=== PATIENT | female | born 1955 | race Caucasian/White ===

== ENCOUNTER 2025-05-25 09:11 | Emergency (ER) | payer MEDICARE, SELFPAY ==
[2025-05-25] VITALS (7 sets, daily range): BP systolic 105–129; BP diastolic 62–88; PULSE 59–68; RESP 15–18; TEMP 36.5–36.6; O2SAT 94–98
--- NOTE | ~2025-05-25 | XR_ITS ---
CHEST RADIOGRAPH, PA AND LATERAL CLINICAL HISTORY: bradycardia . COMPARISON: None available TECHNIQUE: PA and lateral views of the chest. FINDINGS On correlating of the thoracic aorta is identified distorting the contour of the air column within th e esophagus as well as the abdulkadir and bronchi. The remainder of the cardiomediastinal silhouette is otherwise unremarkable. The lungs are clear. IMPRESSION: No focal infiltrate or effusion. Reviewed, dictated and finalized at location A.
--- NOTE | 2025-05-25 09:15 | ECG_ITS ---
Test Date: 2025-05-25 09:17:47 Measurements Intervals [place] Rate: 63 P: 62 FL: 148 QRS: 23 QRSD: 97 T: 63 QT: 405 QTc: 415 Interpretive Statements SINUS RHYTHM WITH PVCs Electronically Signed On 05-25-2025 17:25:23 CDT by Santi Araujo D.O
[2025-05-25 09:32] LABS: Hematocrit 36.9 % (37.0-47.0); Hemoglobin 12.4 g/dL (12.0-15.0); Immature Granulocyte Percent A 0.3 % (0-0.5); Lymphocytes Absolute Auto 2.43 K/mm3 (0.9-3.2); Mean Corpuscular HGB Conc 33.6 g/dl (32-36); Mean Corpuscular Hemoglobin 31.2 pg (26-34); Mean Corpuscular Volume 92.7 fl (80-100); Nucleated Red Blood Cells Absolute Auto 0.000 K/mm3 (0.0-0.012); Nucleated Red Blood Cells Perc 0.0 % (0.0-0.2); Platelet Count Result 243 k/mm3 (150-375); Red Blood Count 3.98 M/mm3 (4.2-5.4); White Blood Count 8.7 K/mm3 (4.5-10.0)
[2025-05-25 09:45] LABS: INR 0.9; Prothrombin Time 12.7 Seconds (11.1-14.7)
[2025-05-25 09:46] LABS: Partial Thromboplastin Time 25.6 Seconds (22.3-36.8)
--- NOTE | 2025-05-25 09:49 | PC.NURSE ---
called lab to add on MG
[2025-05-25 09:58] LABS: Alanine Aminotransferase 19 U/L (6-35); Albumin Level 4.2 g/dL (3.5-5.1); Alkaline Phosphatase 95 U/L (38-126); Anion Gap 9 mmol/L (4-12); Aspartate Amino Transferase 31 U/L (14-36); Bilirubin,Total 0.4 mg/dL (0.2-1.3); Blood Urea Nitrogen 5 mg/dL (7-17); Calcium 9.4 mg/dL (8.4-10.2); Carbon Dioxide 30 mmol/L (22-30); Chloride 91 mmol/L (98-107); Estimated CRCL calculation 49 ml/min; Estimated Glomerular Filt Rate > 60; Glucose 130 mg/dL (65-110); Potassium 3.7 mmol/L (3.4-5.0); Sodium 130 mmol/L (137-145); Total Protein 7.8 g/dL (6.3-8.2)
[2025-05-25 10:03] LABS: Troponin I < 0.012 ng/mL (0.000-0.034)
--- OUTSIDE RECORDS SUMMARY | 2025-05-25 10:03 | XMS_ITS | Clinical Summary ---
Author Organization [facility] Care Team Providers Care Medical Staffing Coordinator Name Role Phone Dhruv Giraldo MD Primary Care Provider + Francisco Martinez MD Unavailable [phone] Allergies Active Allergy Reactions Criticality Noted Date Comments Codeine Nausea,Vomiting,Othe r (see Comments) High 04/02/2024 Reaction: NAUSEA, VOMITING, Morphine Hallucinations,Hives ,Unk nown High 07/20/2019 Reaction: HALLUCINATIONS, Other reaction(s): Stomach/GI Upset Penicillins Rash,Swelling High 07/20/2019 Other reaction(s): Rash Medications amLODIPine (NORVASC) 10 MG Tablet Take 10 mg by mouth daily. 3 Active amitriptyline (ELAVIL) 50 MG Tablet Take 50 mg by mouth. 4 Active buPROPion (WELLBUTRIN) 150 MG XL tablet Take 150 mg by mouth daily. 5 Active oxyCODONE-acetamino phen (PERCOCET) 7.5-325 MG Tablet Take 1 Tablet by mouth. Active dicyclomine (BENTYL) 10 MG Capsule Take 10 mg by mouth 3 times daily. 5 Active gabapentin (NEURONTIN) 300 MG Capsule Take 300 mg by mouth. 4 Active eszopiclone (LUNESTA) 2 MG Tablet take 1 tablet by mouth at bedtime as needed 5 Active folic acid (FOLVITE) 1 MG Tablet Take 1,000 mcg by mouth daily. 3 Active Lactulose Encephalopathy (Enulose) 10 GM/15ML Solution TAKE 15 ML BY MOUTH TWICE DAILY NEEDED Active potassium chloride SA (Klor-Con M20) 20 MEQ Tablet Controlled Release Take 20 mEq by mouth daily. Active levothyroxine (SYNTHROID) 50 MCG Tablet Take 50 mcg by mouth daily. 5 Active busPIRone (BUSPAR) 10 MG Tablet Take 10 mg by mouth 3 times daily. 5 Active rosuvastatin (CRESTOR) 10 MG Tablet Take 10 mg by mouth daily. Active triamterene-hydroch lorothiazide (MAXZIDE) 37.5-25 MG Tablet Take 1 Tablet by mouth daily. Active Active Problems Problem Noted Date Diagnosed Date Abnormal plasma viscosity 04/05/2025 Lytic bone lesions on xray 04/05/2025 Encounters Date Type Department Care Team Description 05/21/2025 9:30 AM CDT Office Visit [facility] [address] [id number] Brianda Lange, FOUNDRY MANAGER, PHYSICIST NUCLEAR Abnormal plasma viscosity (Primary Dx); Lytic bone lesions on xray 05/21/2025 9:00 AM CDT Ancillary Procedure [facility] [address] [id number] Francisco Martinez MD Abnormal plasma viscosity; Lytic bone lesions on xray 05/21/2025 Results Follow-Up [facility] [address] [id number] Linnette Agrawal RN CT ABDOMEN PELVIS W/ CONTRAST 05/21/2025 Telephone [facility] [address] [phone] Brianda Lange, FOUNDRY MANAGER, PHYSICIST NUCLEAR 05/19/2025 11:40 AM CDT Lab [facility] [address] [id number] Lab, Cc [facility] Abnormal plasma viscosity; Lytic bone lesions on xray; Other abnormal tumor markers; Elevated cancer antigen 125 (CA 125) 05/19/2025 Travel 04/05/2025 9:00 AM CDT Office Visit [facility] [address] [phone] Francisco Martinez MD Abnormal plasma viscosity (Primary Dx); Lytic bone lesions on xray 04/05/2025 Travel 03/29/2025 Telephone [facility] [address] [phone] Francisco Martinez MD Biopsy update 03/10/2025 Telephone [facility] [address] [address] Francisco Martinez MD 03/09/2025 Telephone [facility] [address] [address] Francisco Martinez MD 03/05/2025 Telephone [facility] [address] [address] Francisco Martinez MD 03/01/2025 Telephone [facility] [address] [address] Francisco Martinez MD 02/26/2025 9:45 AM CDT Office Visit [facility] [address] [phone] Francisco Martinez MD Lytic bone lesions on xray (Primary Dx); Other abnormal tumor markers; Elevated cancer antigen 125 (CA 125) 02/26/2025 Travel from Last 3 Months Family History Relation Name Status Comments Father Mother Social History Tobacco Use Types Packs/Day Years Used Date Smoking Tobacco: Former Cigarettes Smokeless Tobacco: Never Tobacco Cessation:Counseling Given: Not Answered Alcohol Use Standard Drinks/Week Comments Not Currently 0 (1 standard drink = 0.6 oz pur e alcohol) Sexually Active Control Partners Comments Not Currently Comments Unknown Sex and Gender Information Value Date Recorded Sex Assigned at Not on file Legal Sex Female 5:06 PM CDT Gender Identity Not on file Sexual Orientation Not on file Last Filed Vital Signs Vital Sign Reading Time Taken Comments Blood Pressure 100/58 05/21/2025 9:13 AM CDT Pulse 54 05/21/2025 9:13 AM CDT Temperature 36.6 C (97.8 F) 05/21/2025 9:13 AM CDT Respiratory Rate 18 05/21/2025 9:13 AM CDT Oxygen Saturation 98% 05/21/2025 9:13 AM CDT Inhaled Oxygen Concentration - - Weight 58.2 kg (128 lb 6.4 oz) 05/21/2025 9:13 A M CDT Height 162.6 cm (5' 4) 05/21/2025 9:13 AM CDT Body Mass Index 22.04 05/21/2025 9:13 AM CDT Plan of Treatment Health Maintenance Due Date Last Done Comments DEXA Bone Density 1957 TdaP Immunization 1955 Cologuard 2002 Immunochemical Fecal Occult Blood 2002 Zoster Immunization (1 of 2) 2007 Mammogram 03/15/2022 03/15/2021, 07/08/2019 SARS-COV-2 Immunization ( season) 2024 02/02/2021, 01/12/2021 Influenza Immunization (#1) 2025 Colonoscopy 04/24/2031 04/24/2021 Colorectal Cancer Screening 04/24/2031 Respiratory Syncytial Virus (RSV) Immunization (Adult) (1 - 1-dose 75+ series) 2032 Hepatitis C Virus (HCV) Screening Completed 05/26/2016 Pneumococcal Immunization (5 0+ years) Completed 11/06/2022 Hepatitis B Immunization Aged Out No longer eligible based on patient's age to complete this topic Human Papillomavirus (HPV) Immunization Aged Out No longer eligible b ased on patient's age to complete this topic Meningococcal Immunization (ACWY) Aged Out No longer eligible b ased on patient's age to complete this topic Rotavirus Immunization Aged Out No lo nger eligible based on patient's age to complete this topic Procedures Procedure Name Priority Date/Time Associated Diagnosis Comments CT ABDOMEN PELVIS W/ CONTRAST Routine 05/21/2025 9:22 AM CDT Abnormal plasma viscosity Lytic bone lesions on xray PROTHROMBIN TIME (PT) [id number] [place] Routine 05/19/2025 11:35 AM CDT APTT (PTT) Routine 05/19/2025 11:35 AM CDT Lytic bone lesions on xray Other abnormal tumor markers Elevated cancer antigen 125 (CA 125) Abnormal plasma viscosity CBC WITH AUTO DIFF [place] Routine 05/19/2025 11:33 AM CDT CMP (COMPREHENSIVE METABOLIC PANEL) Routine 05/19/2025 11:33 AM CDT Abnormal plasma viscosity Lytic bone lesions on xray from Last 3 Months Results * CT ABDOMEN PELVIS W/ CONTRAST (05/21/2025 9:22 AM CDT) Anatomical Region Laterality Modality Abdomen N/A Computed Tomogra phy Narrative 05/21/2025 9:49 AM CDT EXAMINATION: CT ABDOMEN PELVIS W/ CONTRAST 05/21/2025 HPI: 80 pound weight loss in six-months. Metastatic disease evaluation. COMPARISON: CT 03/02/2024. TECHNIQUE: Helical imaging of the abdomen and pelvis obtained with the intravenous administration of contrast. A dose lowering technique was used for this procedure, which may include, but is not limited to, dose reduction techniques, automated exposure controlled techniques, use of iterative reconstruction techniques, and ALARA or ALARA gently techniques. FINDINGS: LUNG BASES: The lung bases are clear. No pleural effusion. HEPATOBILIARY: There is some nodularity to the hepatic surface in the right hepatic lobe. No focal liver lesion identified. Status post cholecystectomy. The main portal vein, superior mesenteric vein, and splenic vein are unremarkable. The spleen and pancreas are unremarkable. Mild prominence of the common bile duct, not unexpected given postsurgical state. There is mild prominence of the main pancreatic duct at the level of the head, measuring 7 mm. :The kidneys enhance symmetrically. No hydroureteronephrosis. The adrenal glands are normal. The bladder is decompressed. Status post hysterectomy. GI: There is a significant amount of retained stool in the colon. There is mild colonic wall thickening. Adjacent fat stranding noted in the sigmoid colon and rectum. Small bowel feces sign noted. No bowel dilation. LYMPHATICS: Nonenlarged lymph node identified in the abdomen and pelvis. VASCULAR: Scattered atherosclerotic vascular calcification. No abdominal aortic aneurysm. Postsurgical change noted through the left groin with vascular bypass, incompletely assessed on this exam. MUSCULOSKELETAL: Nonacute right lateral rib fractures with callus formation. Nonacute fracture of the right obturator ring with callus formation. These are incompletely united. These do not appear pathologic in etiology. Status post L4-L5 posterior fusion. Mild L5 vertebral body height loss. Anterolisthesis, L4 on L5. Severe compression fracture noted at T9 at the edge of the [id number]. IMPRESSION 1. Nonacute appearing fractures of the right inferior lateral ribs, right obturator ring, and T9 and L5 vertebral bodies. These appear mechanical in etiology. 2. No CT evidence of metastatic disease. 3. Mild prominence of the main pancreatic duct, measuring 7 mm. This is unchanged in comparison. 4. There is minimal nodularity to the liver which raises concern for cirrhosis. 5. Findings of constipation. There is mild stranding noted about the sigmoid colon which could represent an acute infectious/inflammatory colitis. Correlate with patient's symptoms. There is no significant bowel wall thickening, however Electronically signed by: Mercedes Carlin Date of Signature: 05/21/2025 09:49:44 Procedure Note Mercedes Carlin MD - 05/21/2025 EXAMINATION: CT ABDOMEN PELVIS W/ CONTRAST 05/21/2025 HPI: 80 pound weight loss in six-months. Metastatic disease evaluation. COMPARISON: CT 03/02/2024. TECHNIQUE: Helical imaging of the abdomen and pelvis obtained with the intravenousadministration of contrast. A dose lowering technique was used for this procedure, which mayinclude, but is not limited to, dose reduction techniques, automatedexposure controlled techniques, use of iterative reconstructiontechniques, and ALARA or ALARA gently techniques. FINDINGS: LUNG BASES: The lung bases are clear. No pleural effusion. HEPATOBILIARY: There is some nodularity to the hepatic surface in theright hepatic lobe. No focal liver lesion identified. Status postcholecystectomy. The main portal vein, superior mesenteric vein, andsplenic vein are unremarkable. The spleen and pancreas are unremarkable.Mild prominence of the common bile duct, not unexpected given postsurgicalstate. There is mild prominence of the main pancreatic duct at the levelof the head, measuring 7 mm. :The kidneys enhance symmetrically. No hydroureteronephrosis. Theadrenal glands are normal. The bladder is decompressed. Status posthysterectomy. GI: There is a significant amount of retained stool in the colon. Thereis mild colonic wall thickening. Adjacent fat stranding noted in thesigmoid colon and rectum. Small bowel feces sign noted. No boweldilation. LYMPHATICS: Nonenlarged lymph node identified in the abdomen and pelvis. VASCULAR: Scattered atherosclerotic vascular calcification. No abdominalaortic aneurysm. Postsurgical change noted through the left groin withvascular bypass, incompletely assessed on this exam. MUSCULOSKELETAL: Nonacute right lateral rib fractures with callusformation. Nonacute fracture of the right obturator ring with callusformation. These are incompletely united. These do not appear pathologicin etiology. Status post L4-L5 posterior fusion. Mild L5 vertebral bodyheight loss. Anterolisthesis, L4 on L5. Severe compression fracturenoted at T9 at the edge of the [id number]. IMPRESSION 1. Nonacute appearing fractures of the right inferior lateral ribs, rightobturator ring, and T9 and L5 vertebral bodies. These appear mechanicalin etiology. 2. No CT evidence of metastatic disease. 3. Mild prominence of the main pancreatic duct, measuring 7 mm. This isunchanged in comparison. 4. There is minimal nodularity to the liver which raises concern forcirrhosis. 5. Findings of constipation. There is mild stranding noted about thesigmoid colon which could represent an acute infectious/inflammatorycolitis. Correlate with patient's symptoms. There is no significantbowel wall thickening, however Electronically signed by: Mercedes Carlin Date of Signature: 05/21/2025 09:49:44 us Francisco Martinez MD IM CT ORDERABLES Final Res ult * PROTHROMBIN TIME (PT) [id number] [place] (05/19/2025 11:35 AM CDT) INR 1.0 0.9 - 1.2 [facility] Comment: REFERENCE INTERVAL IS FOR NON-ANTICOAGULATED PATIENTS. SUGGESTED INR THERAPEUTIC RANGE FOR VITAMIN K ANTAGONIST THERAPY: STANDARD DOSE (MODERATE INTENSITY THERAPEUTIC RANGE): 2.0 - 3.0 HIGHER INTENSITY THERAPEUTIC RANGE 2.5 - 3.5 PROTHROMBIN TIME 10.8 9.1 - 12.0 SEC [facility] 05/19/2025 11:[address] [facility] - 05/20/2025 7:08 AM CDT TESTING PERFORMED AT: [] [facility], [address] [place] [address], [phone], PHONE: [phone], HEALTHCARE ANALYST: ONOFRE MCFADDEN, PHD us Francisco Martinez MD LAB SEND OUTS Final Resul t Performing Organization Address [facility]/ZIP Co de Phone Number [facility] [place] [address], * APTT (PTT) (05/19/2025 11:35 AM CDT) APTT 26 24 - 33 SEC [facility] Comment: THIS TEST HAS NOT BEEN VALIDATED FOR MONITORING UNFRACTIONATED HEPARIN THERAPY. APTT-BASED THERAPEUTIC RANGES FOR UNFRACTIONATED HEPARIN THERAPY HAVE NOT BEEN ESTABLISHED. FOR GENERAL GUIDELINES ON HEPARIN MONITORING, REFER TO THE [facility] DIRECTORY OF SERVICES. Blood 05/19/2025 11:[address] [facility] - 05/20/2025 9:07 AM CDT TESTING PERFORMED AT: [] [facility], [address] [place] [address], [phone], PHONE: [phone], HEALTHCARE ANALYST: ONOFRE MCFADDEN, PHD Release to patient->Immediate us Francisco Martinez MD HEMATOLOGY ORDERABLES Final Result Performing Organization Address [facility] Co de Phone Number [facility] [place] [address], [place] [phone] * (ABNORMAL) CBC WITH AUTO DIFF [place] (05/19/2025 11:33 AM CDT) WBC 7.4 4.0 - 10.0 10*3/uL [facility] HGB 12.0 11.2 - 15.7 g/dL [facility] HCT 35.0 34.1 - 44.9 % [facility] PLT 263 163 - 369 10*3/uL [facility] MPV 8.3(L) 9.4 - 12.4 fL [facility] RBC 3.86(L) 3.93 - 5.22 10*6/uL [facility] MCV 91 79 - 95 fL [facility] MCH 31.1 25.6 - 32.2 pg [facility] MCHC 34.3 32.2 - 36.5 g/dL [facility] RDW 11.7 11.6 - 14.4 % [facility] Neutrophils % 59.1 36.0 - 66.0 % [facility] Lymphocytes % 31.4 19.0 - 40.0 % [facility] Monocytes % 6.9 4.1 - 12.1 % [facility] Eosinophils % 1.5 0.0 - 3.5 % [facility] Basophils % 0.8 0.0 - 1.0 % [facility] Absolute Neutrophils 4.4 1.4 - 6.6 10*3/uL [facility] Absolute Lymphocytes 2.3 0.8 - 4.0 10*3/uL [facility] Absolute Monocytes 0.5 0.2 - 1.2 10*3/uL [facility] Absolute Eosinophils 0.1 0.0 - 0.4 10*3/uL [facility] Absolute Basophils 0.1 0.0 - 0.1 10*3/uL [facility] 05/19/2025 11:3 3 AM CDT Francisco Martinez MD LAB SEND OUTS Final Resul t [facility] [place] [address], * (ABNORMAL) CMP (COMPREHENSIVE METABOLIC PANEL) (05/19/2025 11:33 AM CDT) Glucose 123(H) 70 - 105 mg/dL [facility] Blood Urea Nitrogen 10 7 - 25 mg/dL [facility] Creatinine 1.0 0.6 - 1.2 mg/dL [facility] Sodium 125(L) 136 - 145 mEq/L [facility] Potassium 3.2(L) 3.5 - 5.1 mEq/L [facility] Chloride 85(L) 98 - 107 mEq/L [facility] Bicarbonate 29 21 - 31 mEq/L [facility] Total Bilirubin 0.3 0.3 - 1.0 mg/dL [facility] Alk. Phosphatase 91 34 - 104 U/L [facility] Aspartate Aminotransferase 15 13 - 39 U/L [facility] Alanine Aminotransferase 11 7 - 52 U/L [facility] Total Protein 6.7 6.4 - 8.9 g/dL [facility] Albumin 4.1 3.5 - 5.7 g/dL [facility] Calcium 8.9 8.6 - 10.3 mg/dL [facility] Anion Gap 14.2 7.0 - 15.0 mEq/L [facility] Globulin 2.6 2.0 - 3.5 g/dL [facility] EGFR 61 >60 ml/min/1. 73m2 [facility] Comment: This eGFR is calculated using 2020 CKD-EPI Creatinine equation without race modifier based on the NKF-ASN task force recommendations Equation: bTYK=626*min(SCr/k,1)a*max(SCr/k,1)-1.200*0.9938Age*1.012 (if female), where SCr is serum creatinine, k is 0.7 for females and 0.9 for males, and a is -0.241 for females and -0.302 for males Blood 05/19/2025 11:3 3 AM CDT Narrative [facility] - 05/19/2025 12:29 PM CDT Release to patient->Immediate IS THE PATIENT REQUIRED TO BE FASTING FOR 8 HOURS?->No Francisco Martinez MD CHEMISTRY ORDERABLES Final Result [facility] [place] [address], [place] [phone] from Last 3 Months Insurance MEDICARE C [employer] Care Teams Medical Staffing Coordinator Relationship Specialty Start Date End Date Dhruv Giraldo MD [address] [place] [id number] PCP - General Family Medicine 02/16/25 Francisco Martinez MD [address] [place] [phone] Consulting Physician Oncology 02/17/25
--- OUTSIDE RECORDS SUMMARY | 2025-05-25 10:03 | XMS_ITS | Encounter Summary ---
Author Organization [facility] Address [address] [place] [address] Phone Care Team Providers Care Records Analysis Manager Name Role Phone Dhruv Giraldo MD Primary Care Provider + Francisco Martinez MD Unavailable [phone] Encounter Details Date Type Department Care Team (Late st Contact Info) Description 03/01/2025 Telephone [facility] [address] [place] [address] Francisco Martinez MD [address] [place] [address] Social History Tobacco Use Types Packs/Day Years Used Date Smoking Tobacco: Former Cigarettes Smokeless Tobacco: Never Alcohol Use Standard Drinks/Week Comments Not Currently 0 (1 standard drink = 0.6 oz pur e alcohol) Sexually Active Control Partners Comments Not Currently Comments Unknown Sex and Gender Information Value Date Recorded Sex Assigned at Not on file Legal Sex Female 5:06 PM CDT Gender Identity Not on file Sexual Orientation Not on file documented as of this encounter Plan of Treatment Not on file documented as of this encounter Visit Diagnoses Not on filedocumented in this encounter Care Teams Records Analysis Manager Relationship Specialty Start Date End Date Dhruv Giraldo MD [address] [place] [address] [address] [place] [address] PCP - General Family Medicine 02/16/25 Francisco Martinez MD [address] [place] [phone] Consulting Physician Oncology 02/17/25 documented as of this encounter
--- OUTSIDE RECORDS SUMMARY | 2025-05-25 10:03 | XMS_ITS | Encounter Summary ---
Author Organization [facility] Address [address] [place] [address] Phone Care Team Providers Care Bottle Gauger Name Role Phone Dhruv Giraldo MD Primary Care Provider + Francisco Martinez MD Unavailable [phone] Encounter Details Date Type Department Care Team (Late st Contact Info) Description 03/05/2025 Telephone [facility] [address] [place] [address] Francisco Martinez MD [address] [place] [address] Social History Tobacco Use Types [...] on filedocumented in this encounter Care Teams Bottle Gauger Relationship Specialty Start Date End Date Dhruv Giraldo MD [address] [place] [address] [address] [place] [address] PCP - General Family Medicine 02/16/25 Francisco Martinez MD [address] [place] [phone] Consulting Physician Oncology 02/17/25 documented as of this encounter
--- OUTSIDE RECORDS SUMMARY | 2025-05-25 10:03 | XMS_ITS | Encounter Summary ---
Author Organization [facility] Care Team Providers Care Radiotelegrapher Name Role Phone Rosi Masters MD Primary Care Provider [phone] Radha Whitney MD Primary Care Provider [phone] Dhruv Harley MD Primary Care Provider [phone] Dhruv Giraldo DO Primary Care Provider + Radha Whitney MD Unavailable [phone] Dhruv Harley MD Unavailable [phone] Graciela Murphy RN Unavailable Encounter Details Date Type Department Care Team (Latest Contact Info) Description 03/29/2017 Orders Only [facility] ProviderYoselin MD [address] [place] [id number] Social History Tobacco Use Types Packs/Day Years Used Date Smoking Tobacco: Never Assessed Comments Unknown Sex and Gender Information Value Date Recorded Sex Assigned at Not on file Legal Sex Female 9: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 Historical Provider Final Res ult * PROCEDURE - RESULT (03/19/2017 12:00 AM CDT) Narrative 03/19/2017 12:00 AM CDT Ordered by an unspecified provider. Historical Provider Final Res ult documented in this encounter Visit Diagnoses Not on filedocumented in this encounter Additional Health Concerns Infection Onset Date Last Indicated Resolved Time COVID: Suspected 06/17/2023 06/17/2023 06/17/2023 11:53 AM CDT documented as of this encounter Care Teams Radiotelegrapher Relationship Specialty Start Date End Date Rosi Masters MD PCP - General 07/07/19 08/07/20 Radha Whitney MD PCP - General 08/08/20 12/05/20 Dhruv Harley MD PCP - General Family Medicine 12/06/20 01/01/21 Dhruv Giraldo DO PCP - General Family Medicine 01/02/21 Radha Whitney MD 12/06/20 01/01/21 Dhruv aHrley MD Family Medicine 01/02/21 Graciela Murphy RN [address] [place] [address] [place] [address] Business Process Engineer 03/22/24 04/02/24 documented as of this encounter
--- OUTSIDE RECORDS SUMMARY | 2025-05-25 10:03 | XMS_ITS | Encounter Summary ---
Author Organization [facility] Facility Care Team Providers Care Electric Tripper Machine Operator Name Role Phone Rosi Masters MD Primary Care Provider [phone] Radha Whitney MD Primary Care Provider [phone] Dhruv Harley MD Primary Care Provider [phone] Dhruv Giraldo DO Primary Care Provider + Radha Whitney MD Unavailable [phone] Dhruv Harley MD Unavailable [phone] Graciela Murphy RN Unavailable [phone] Encounter Details Date Type Department Care Team (Latest Contact Info) Description 03/04/2017 Orders Only [facility] ProviderYoselin MD [address] [place] [id number] Social History Tobacco Use Types Packs/Day Years Used Date Smoking Tobacco: Never Assessed Comments Unknown Sex and Gender Information Value Date Recorded Sex Assigned at Not on file 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 us Historical Provider Final Res ult documented in this encounter Visit Diagnoses Not on filedocumented in this encounter Additional Health Concerns Infection Onset Date Last Indicated Resolved Time COVID: Suspected 06/17/2023 06/17/2023 06/17/2023 11:53 AM CDT documented as of this encounter Care Teams Electric Tripper Machine Operator Relationship Specialty Start Date End Date Rosi Masters MD PCP - General 07/07/19 08/07/20 Radha Whitney MD PCP - General 08/08/20 12/05/20 Dhruv Harley MD PCP - General Family Medicine 12/06/20 01/01/21 Dhruv Giraldo DO PCP - General Family Medicine 01/02/21 Radha Whitney MD 12/06/20 01/01/21 Dhruv Harley MD Family Medicine 01/02/21 Graciela Murphy, RN [address] [place] [address] [place] [address] Computer Security Coordinator 03/22/24 04/02/24 documented as of this encounter
--- OUTSIDE RECORDS SUMMARY | 2025-05-25 10:03 | XMS_ITS | Encounter Summary ---
Author Organization [facility] Facility Care Team Providers Care Instrumentation Engineer Name Role Phone Rosi Masters MD Primary Care Provider Radha Whitney MD Primary Care Provider [phone] Dhruv Harley MD Primary Care Provider [phone] Dhruv Giraldo DO Primary Care Provider + Radha Whitney MD Unavailable [phone] Dhruv Harley MD Unavailable [phone] Graciela Murphy RN Unavailable [phone] Encounter Details Date Type Department Care Team (Latest Contact Info) Description 12/28/2016 Orders Only [facility]IN[facility] ProviderYoselin MD [address] [place] [address] Social History Tobacco Use Types Packs/Day Years Used Date Smoking Tobacco: Never Assessed Comments Unknown Sex and Gender Information Value Date Recorded Sex Assigned at Not on file Legal Sex Female 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 us Historical Provider Final Res ult documented in this encounter Visit Diagnoses Not on filedocumented in this encounter Additional Health Concerns Infection Onset Date Last Indicated Resolved Time COVID: Suspected 06/17/2023 06/17/2023 06/17/2023 11:53 AM CDT documented as of this encounter Care Teams Instrumentation Engineer Relationship Specialty Start Date End Date Rosi Masters MD PCP - General 07/07/19 08/07/20 Radha Whitney MD PCP - General 08/08/20 12/05/20 Dhruv Harley MD PCP - General Family Medicine 12/06/20 01/01/21 Dhruv Giraldo DO PCP - General Family Medicine 01/02/21 Radha Whitney MD 12/06/20 01/01/21 Dhruv Harley MD Family Medicine 01/02/21 Graciela Murphy, RN [address] [place] [address] [place] [address] Physicians Assistant 03/22/24 04/02/24 documented as of this encounter
--- OUTSIDE RECORDS SUMMARY | 2025-05-25 10:03 | XMS_ITS | Referral Summary ---
[facility] Address [address] [place] [id number] Care Team Providers Care Bank Consultant Name Role Phone EnzoDhruv Primary Care Provider + Dhruv Harley MD Unavailable [phone] Allergies Active Allergy Reactions Criticality Noted Date Comments Codeine Nausea only,Vomiting,Nausea And Vomiting,Other (See comments) High 04/02/2024 Reaction: NAUSEA, VOMITING, Morphine Hallucinations,Hives High 07/20/2019 Reaction: HALLUCINATIONS, Other reaction(s): Stomach/GI Upset Penicillins Rash,Swelling High 07/20/2019 Other reaction(s): Rash Medications naloxone (NARCAN) 4 mg/actuation spray,non-aeroso l Administer 1 spray into affected nostril(s) as needed for opioid reversal or respiratory depression Call 911. Administer a single spray in one nostril. Repeat every 3 minutes as needed if no or minimal response. 1 each 2 Active Additional Information Patient not taking.Reported on 04/02/2024 levothyroxine (SYNTHROID) 50 mcg tablet TAKE 1 TABLET (50 MCG TOTAL) BY MOUTH DAILY EXCEPT ON SUNDAYS. TAKE 2 TABLETS BY MOUTH ON SUNDAYS. 90 tablet 1 3 Active Additional Information Patient taking differently:50 mcg oral Daily,Daily on Saturday, Saturday, Saturday and , Reported on 03/24/2024 folic acid (FOLVITE) 1 mg tablet TAKE 1 TABLET BY MOUTH EVERY DAY 90 tablet 1 3 Active rosuvastatin (CRESTOR) 10 mg tablet TAKE 1 TABLET BY MOUTH EVERY DAY 90 tablet 1 3 Active amLODIPine (NORVASC) 10 mg tablet TAKE 1 TABLET BY MOUTH EVERY DAY 90 tablet 1 3 Active gabapentin (NEURONTIN) 300 mg capsule Take 1 capsule (300 mg total) by mouth 3 (three) times a day 100 capsule 4 Active omeprazole (PriLOSEC) 20 mg capsule Take 1 capsule (20 mg total) by mouth daily Active Lactobacillus acidophilus 10 billion cell capsule Take 1 capsule by mouth daily Active acetaminophen (TYLENOL) 325 mg tabletIndication s:Fever,Pain Take 2 tablets (650 mg total) by mouth every 4 (four) hours as needed for pain, headaches or fever 4 Active Additional Information Patient not taking.Reported on 04/02/2024 dicyclomine (BENTYL) 20 mg tablet Take 1 tablet (20 mg total) by mouth every 6 (six) hours as needed (abdominal cramps) Active amitriptyline (ELAVIL) 50 mg tabletIndication s:Diabetic Peripheral Neuropathy,Insom shama Take 1 tablet (50 mg total) by mouth nightly 30 tablet 4 Active cholecalciferol (VITAMIN D-3) 5,000 unit capsule Take 1 capsule (5,000 Units total) by mouth daily 30 capsule 2 4 Active cyanocobalamin (vitamin B-12) 1,000 mcg tabletIndication s:Prevention of Vitamin B12 Deficiency Take 1 tablet (1,000 mcg total) by mouth daily 30 tablet 2 4 Active diclofenac sodium (VOLTAREN) 1 % gelIndications:[place] in Apply 4 g topically 4 (four) times a day 100 g 4 Active multivitamin tabletIndication s:Vitamin Deficiency Prevention Take 1 tablet by mouth daily 4 Active pregabalin (LYRICA) 75 mg capsuleIndicatio ns:Fibromyalgia Take 1 capsule (75 mg total) by mouth 3 (three) times a day 90 capsule 4 Active Additional Information Patient not taking.Reported on 04/02/2024 pyridoxine (VITAMIN B-6) 50 mg tabletIndication s:Pyridoxine Deficiency Take 1 tablet (50 mg total) by mouth daily 30 tablet 2 4 Active thiamine (VITAMIN B1) 100 mg tabletIndication s:Thiamine Deficiency Take 1 tablet (100 mg total) by mouth daily 30 tablet 2 4 Active vitamin E (AQUASOL E) 400 unit capsule Take 1 capsule (400 Units total) by mouth daily 30 capsule 2 4 Active busPIRone (BUSPAR) 5 mg tabletIndication s:Generalized Anxiety Disorder Take 1 tablet (5 mg total) by mouth 3 (three) times a day 90 tablet 4 Active levothyroxine (SYNTHROID) 100 mcg tablet Take 1 tablet (100 mcg total) by mouth once a week Once a day on Sundays Active triamterene-hydr oCHLOROthiazide 37.5-25 mg per tablet Take 1 tablet/capsule by mouth daily 4 Active oxyCODONE-acetam inophen (PERCOCET) 7.5-325 mg per tabletIndication s:Pain Take 1 tablet by mouth every 4 (four) hours as needed Active Active Problems Problem Noted Date Diagnosed Date Copper deficiency 03/12/2024 Gait abnormality 03/04/2024 Assessment & Plan (03/16/2024 11:17 AM CDT): Improved. Mostly UE limitations present from neuropathy. Assessment & Plan (03/14/2024 1:55 PM CDT): I endorse admission to long term care. The patient is at risk of injury, illness and a requirement for a higher level of care without this service. The patient needs assistance from the nurses and care team for all activities of daily living including dressing, hygeine of person and toilet, safe transfer and mobility, dietary needs, medication administration, and grooming. The patient will need physical and occupational therapy to progress to a safer level of care. Severe protein-calorie malnutrition 02/25/2024 Assessment & Plan (03/12/2024 11:31 AM CDT): RD to follow. Monitor weight. Encounter for Medicare annual wellness exam 02/25 Assessment & Plan (03/11/2023 12:04 PM CDT): Chart reviewed meds reviewed History of colitis 12/10/2022 Assessment & Plan (03/19/2024 10:55 AM CDT): Family has been working on GI appt but delayed with hospitalization. Likely needs colonscopy. Continue Bentyl PRN, Probiotic. Montior. Assessment & Plan (03/12/2024 11:32 AM CDT): Family has been working on GI appt but delayed with hospitalization. Likely needs colonscopy. Continue Bentyl PRN, Probiotic. Montior. 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 Continue current treatment. Assessment & Plan (12/10/2022 11:04 AM DEVELOPMENT ADVISOR): Patient is well controlled. Continue current treatment. Assessment & Plan (11/06/2022 8:45 AM DEVELOPMENT ADVISOR): Patient is well controlled. Continue current treatment. SOFI (generalized anxiety disorder) 11/06/2022 Assessment & Plan (03/19/2024 10:55 AM CDT): Increased anxiety. Start Buspar 5mg TID. Continue Elavil. Monitor. Assessment & Plan (03/11/2023 12:12 PM CDT): She has discontinued the benzo Assessment & Plan (11/06/2022 8:46 AM DEVELOPMENT ADVISOR): Will return to xanax tid Uncomplicated opioid dependence 06/21/2022 Assessment & Plan (06/17/2023 12:46 PM CDT): Chronic issue Continue to wean off opioid Assessment & Plan (05/30/2023 1:36 PM CDT): Will continue to wean narcotic Assessment & Plan (03/11/2023 12:05 PM CDT): Will refer to pain management I will be unable to write for half-way narcotic meds Assessment & Plan (12/10/2022 11:04 AM DEVELOPMENT ADVISOR): No new orders Assessment & Plan (11/06/2022 8:46 AM DEVELOPMENT ADVISOR): Refill medication Assessment & Plan (09/03/2022 11:47 AM DEVELOPMENT ADVISOR): Continue current treatment Assessment & Plan (06/21/2022 10:26 AM CDT): Pt needs chronic pain meds Add lidocaine patch Mixed hyperlipidemia 05/22/2022 Assessment & Plan (03/14/2024 1:58 PM CDT): Chronic, stable; cont rx crestor Assessment & Plan (05/22/2022 2:12 PM CDT): Has been out of her Crestor 10 mg daily. Advised to restart. Update lipid panel. Anterolisthesis 01/29/2022 Multilevel degenerative disc disease 01/29/2022 Grade I diastolic dysfunction 01/29/2022 Intermittent claudication 01/10/2022 Assessment & Plan (09/03/2022 11:46 AM DEVELOPMENT ADVISOR): Sees vascular surgeon Assessment & Plan (01/10/2022 10:32 AM CDT): She has intermittent claudication symptoms. I am going to check an arterial brachial index of the left lower extremity. She is scheduled to see vascular surgery on January 22. I recommended she start a baby aspirin daily. KETCHIKAN (hard of hearing) 05/18/2021 Assessment & Plan (01/29/2022 12:13 PM CDT): Refer to appliances sample maker Assessment & Plan (01/10/2022 10:33 AM CDT): Patient is well controlled. Continue current treatment. Assessment & Plan (05/18/2021 2:35 PM CDT): Refer to ENT for evaluation possible hearing aids Chronic midline thoracic back pain 03/20/2021 Assessment & Plan (06/25/2023 5:07 PM CDT): Chronic condition Have been attempting to wean off narcotics Will refer to IPC Assessment & Plan (01/10/2022 10:33 AM CDT): Remains on chronic pain med Assessment & Plan (08/31/2021 12:48 PM CDT): Bone scan cxr Assessment & Plan (05/09/2021 10:37 AM CDT): X ray s reviewed Oncology report reviewed Assessment & Plan (03/23/2021 9:03 AM CDT): Order a mri t spine Assessment & Plan (03/20/2021 11:38 AM CDT): Unknown etiology Add percocet qt hs spep upep Cbc Chem 7 Sed rate ? MM Dyslipidemia 01/26/2021 Assessment & Plan (01/10/2022 10:34 AM CDT): Patient is well controlled. Continue current treatment. History of tobacco abuse 01/26/2021 Assessment & Plan (01/10/2022 10:34 AM CDT): No on going tobacco use Assessment & Plan (08/31/2021 12:48 PM CDT): cxr Assessment & Plan (05/09/2021 10:38 AM CDT): 30 plus years greater than a pack a day Order a ct lung screen HTN (hypertension) 01/03/2021 Assessment & Plan (03/17/2024 2:01 PM CDT): Chronic, stable; cont rx norvasc; monitor for trend. Assessment & Plan (03/14/2024 1:58 PM CDT): Chronic, stable; cont rx norvasc Assessment & Plan (03/12/2024 11:49 AM CDT): BP controlled. Continue Norvasc. Assessment & Plan (06/17/2023 12:47 PM CDT): Patient is well controlled. Continue current treatment. Assessment & Plan (12/10/2022 11:05 AM DEVELOPMENT ADVISOR): Patient is well controlled. Continue current treatment. Assessment & Plan (11/06/2022 8:45 AM DEVELOPMENT ADVISOR): Patient is well controlled. Continue current treatment. Assessment & Plan (09/03/2022 11:47 AM DEVELOPMENT ADVISOR): Patient is well controlled. Continue current treatment. Assessment & Plan (04/05/2022 12:45 PM CDT): Patient is well controlled. Continue current treatment. Assessment & Plan (01/10/2022 10:37 AM CDT): Patient is well controlled. Continue current treatment. Assessment & Plan (05/09/2021 10:37 AM CDT): Patient is well controlled. Continue current treatment. Assessment & Plan (03/23/2021 9:03 AM CDT): Patient is well controlled. Continue current treatment. Needs spep and upep PVD (peripheral vascular disease) 01/03/2021 Assessment & Plan (06/17/2023 12:47 PM CDT): stable Assessment & Plan (03/11/2023 12:05 PM CDT): Patient is well controlled. Continue current treatment. Assessment & Plan (12/10/2022 11:11 AM DEVELOPMENT ADVISOR): Sees vascular surgery on a regular basis Assessment & Plan (10/03/2022 1:11 PM DEVELOPMENT ADVISOR): Stable non progressing claudication to the left lower extremity. History of left fem-pop bypass with in Situ saphenous vein in situ 2016. States the pain is with standing certain positions not made worse with exertion. States the pain radiates from her left low back and down the leg. She does have a history of chronic low back pain radiculopathy and lumbar stenosis. Plan: Return in 6 months with continued routine surveillance of lower extremity with arterial duplex. Follow-up with her previous Neuro Spine physician for further evaluation of her low back pain. Assessment & Plan (01/10/2022 10:36 AM CDT): Will see Dr. Edmond Hypothyroidism, unspecified 01/03/2021 Assessment & Plan (03/17/2024 2:01 PM CDT): Chronic, stable; cont rx synthroid Assessment & Plan (03/14/2024 1:58 PM CDT): Chronic, stable; cont rx synthroid Assessment & Plan (09/03/2022 11:46 AM DEVELOPMENT ADVISOR): tsh and free t4 Assessment & Plan (01/10/2022 10:36 AM CDT): tsh and free t4 Assessment & Plan (01/03/2021 8:26 AM DEVELOPMENT ADVISOR): Check lab Peripheral neuropathy 01/03/2021 Assessment & Plan (03/19/2024 10:57 AM CDT): Severe peripheral neuropathy affects hands & feet with ataxia. Believe to be brought on by copper deficiency. Currently on Amitriptyline 50mg qhs, Gabapentin 300mg TID, Lyrica 75mg TID, Oxycodone 15mg q4h PRN. Vitamins started for deficiency/malnutrition. Neuropathy remains not controlled. Diclofenac cream. Vitamin levels checked & stable at this point. Copper level pending. Concerns with loss from colitis but BM regimen stable. Will need close fu with Neurologist & PCP. Continue OT with adaptive equipment. Assessment & Plan (03/17/2024 2:03 PM CDT): Son Dhruv present. Reviewed available lab results w them but some labs are pending and they are so advised. Cont rx gabapentin, lyrica. Cont prn oxycodone. They had several questions about med reconciliation at the point of discharge. Their questions were answered to their satisfaction. Assessment & Plan (03/16/2024 11:16 AM CDT): Severe peripheral neuropathy affects hands & feet with ataxia. Believe to be brought on by copper deficiency. Currently on Amitriptyline 25mg qhs, Gabapentin 300mg TID, Lyrica 75mg BID. Vitamins started for deficiency/malnutrition. Neuropathy remains not controlled at all. Diclofenac cream added this weekend. Vitamin levels checked & stable at this point. Concerns with loss from colitis but BM regimen stable. Will increase Lyrica to 75mg TID, continue oxycodone as ordered. Have educated patient will take time & will need close fu with Neurologist & PCP. Continue OT with adaptive equipment. Assessment & Plan (03/14/2024 1:57 PM CDT): She comes to us w the diagnosis of copper deficiency as etiology of her polyneuropathy. Shortly after arrival we received update from neurohospitalist defining several deficiency concerns (see attached lab values). As a result we have ordered oral copper, B12, folic acid, MV, Vit B6, thiamine, and Vit E. Assessment & Plan (03/12/2024 11:48 AM CDT): Severe peripheral neuropathy affects hands & feet with ataxia. Believe to be brought on by copper deficiency. Currently on Amitriptyline 25mg qhs, Gabapentin 300mg TID, Lyrica 50mg daily. Vitamins started for deficiency/malnutrition. Neuropathy is not controlled at all. Cr stable. Will increase Lyrica to 75mg BID, stop Percocet & start Oxy 15mg q4h PRN. Monitor for effectiveness. Staff alerted to need for meal setup & extra care d/t neuropathy. Assessment & Plan (01/10/2022 10:36 AM CDT): No new orders Will await lawrence GERD (gastroesophageal reflux disease) Assessment & Plan (01/10/2022 10:35 AM CDT): Continues on pepcid History of CHF (congestive heart failure) 2020 Assessment & Plan (01/10/2022 10:35 AM CDT): Patient is well controlled. Continue current treatment. Osteoarthritis 01/03/2021 Assessment & Plan (01/10/2022 10:35 AM CDT): Patient is well controlled. Continue current treatment. Full code status 01/03/2021 Assessment & Plan (01/10/2022 10:34 AM CDT): Patient is well controlled. Continue current treatment. Assessment & Plan (01/03/2021 8:24 AM DEVELOPMENT ADVISOR): Discussed with patient approximately 20minutes End of life issues/Advanced Directives/Healthcare Surrogate. Discussed DNR. Encouraged to discuss further with family and consult estate planning attorney or complete [place] approved form, which I would be glad to assist them with completion. All questions answered. 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 Insomnia 06/06/2016 Primary osteoarthritis of left knee 02/29/2016 Spinal stenosis of lumbar region 02/29/2016 Assessment & Plan (05/22/2022 2:11 PM CDT): In PT. Continue Percocet 10-325 mg QID/PRN. Also on gabapentin and will add tizanidine PRN. MRI lumbar scheduled for 05/2022. Assessment & Plan (04/05/2022 12:46 PM CDT): Mri ls spine Assessment & Plan (03/12/2022 4:44 PM CDT): Chronic pain Using oxy up to 4 x day Wishes a rx for qid Discussed cant take more than qid Under going PT Assessment & Plan (01/29/2022 12:13 PM CDT): With history of lumbar fusion in the past. She has had left radicular pain progressing over the past several months. Will update Lumbar MRI and start Medrol Dosepak. I will increase her Percocet to 10 mg-325 mg TID/PRN for a short time as she really wants to avoid pain management. Resolved Problems Problem Noted Date Diagnosed Date Resolved Date Contusion of right hand 03/16/202402/26 Assessment & Plan (03/16/2024 11:21 AM CDT): Over weekend. XR not done. Hand stable. No pain, deformity, swelling. Colitis 02/24/2024 03/12/2024 Nausea 02/24/2024 03/12/2024 Anorexia 02/24/2024 03/12/2024 Hypomagnesemia 02/24/2024 03/12/2024 Pain of maxillary sinus 06/25/2023 05/03/2024 Assessment & Plan (06/25/2023 5:07 PM CDT): Right-sided. I am going to put her on doxycycline 100 mg p.o. b.i.d. for 1 week X-ray of the sinuses. I am going to order MRI of the right internal auditory canal. The exam is otherwise unremarkable in regards to the ear. She does have posterior cervical tenderness right-sided. Upper respiratory infection 06/17/2023 03/12/2024 Assessment & Plan (06/17/2023 12:45 PM CDT): Z jayme Left foot pain 12/10/2022 03/12/2024 Assessment & Plan (12/10/2022 11:20 AM DEVELOPMENT ADVISOR): Pain in second toe Deformed Refer to systems qa analyst Chronic mid back pain 05/22/20222023 Assessment & Plan (05/30/2023 1:37 PM CDT): Chronic. Worsening. Will check a MRI T-spine Assessment & Plan (03/11/2023 12:15 PM CDT): Chronic condition Worsening Order a mri t spine Has spinal stenosis of the t spine Assessment & Plan (09/03/2022 11:51 AM DEVELOPMENT ADVISOR): Terms of the lower extremities a chronic burning sensation. She has evidence of spinal stenosis at T10-11 which was incompletely evaluated on the MRI of the lumbosacral spine. She needs a MRI of the T-spine. Assessment & Plan (06/21/2022 10:22 AM CDT): Patient has at least mild spinal stenosis at T10-11 incompletely visualized on the MRI of the lumbar spine. She needs an MRI of her T-spine I will order this Left arm pain 04/05/2022 03/12/2024 Assessment & Plan (04/05/2022 12:46 PM CDT): Paresthesia Think CTS Will order a ncs lue Cellulitis of left thigh 01/29/2022 01/ 07/2023 Elevated blood pressure comp licating , antepartum 01/29/2022 11/06/2022 Hyperleukocytosis 01/29/2022 06/21/2022 Hypokalemia due to loss of potassium 01/29/2022 03/12/2024 Muscle spasms of lower extremity 01/29/2022 03/12/2024 Rib pain 01/29/2022 03/12/2024 Systemic inflammatory respon se syndrome (SIRS) 01/29/2022 05/22/2022 Abdominal pain of multiple sites 01/29/2022 03/12/2024 Anxiety with depression 01/29/202205/29 Radicular pain 01/23/2022 03/12/2024 Generalized anxiety disorder 01/10/2022 12/10/2022 Assessment & Plan (03/12/2022 4:45 PM CDT): Patient is well controlled. Continue current treatment. Assessment & Plan (01/10/2022 10:35 AM CDT): Patient is well controlled. Continue current treatment. Weight loss 01/10/2022 06/21/2022 Assessment & Plan (03/12/2022 4:44 PM CDT): Has arrested Gained 4 lb Assessment & Plan (01/10/2022 10:38 AM CDT): Undetermined etiology Check a CBC Chem 7 sed rate KARAN rheumatoid factor. Will check a TSH free T4 Hip pain 01/10/2022 06/21/2022 Assessment & Plan (01/29/2022 12:13 PM CDT): Check left hip xray Assessment & Plan (01/10/2022 10:40 AM CDT): Check a x ray of the left hip Acute low back pain due to trauma 08/31/2021 03/12/2024 Assessment & Plan (05/30/2023 1:37 PM CDT): She has done 6+ weeks of physical therapy. She continues to have thoracic and lumbar back pain. I am going to order an MRI of her T and LS spine. She has radicular symptoms into the left lower extremity. Assessment & Plan (01/10/2022 10:33 AM CDT): She continues on routine pain medication Assessment & Plan (08/31/2021 12:49 PM CDT): Elavil 10 Elevated antinuclear antibody (KARAN) level 05/09/2021 03/12/2024 Assessment & Plan (12/10/2022 11:11 AM DEVELOPMENT ADVISOR): Saw rheumatology Told no need to recheck karan Assessment & Plan (01/29/2022 12:13 PM CDT): Refer to psychiatric mental health nurse Assessment & Plan (01/10/2022 10:33 AM CDT): Recheck a karan Assessment & Plan (05/09/2021 10:36 AM CDT): See rheumatology Proteinuria 04/13/2021 03/12/2024 Assessment & Plan (01/10/2022 10:33 AM CDT): Has seen hematology Back strain 02/20/2021 01/10/2022 Atypical chest pain 01/26/2021 01/11/20 22 Hx pulmonary embolism 01/03/20212020 Crohn's disease 01/03/2021 12/10/2022 Assessment & Plan (12/10/2022 11:05 AM DEVELOPMENT ADVISOR): Will refer her to a new G.I specialist Assessment & Plan (11/06/2022 8:47 AM DEVELOPMENT ADVISOR): Sees Dr. Whitney Assessment & Plan (09/03/2022 11:46 AM DEVELOPMENT ADVISOR): Refer to gastroenterology Assessment & Plan (04/05/2022 12:52 PM CDT): Having llq discomfort Possible colitis Will add cipro 500 mg bid 1 week Update 4 day s Call or ER if worsening Assessment & Plan (01/10/2022 10:36 AM CDT): Sees Dr. Whitney Anxiety 01/03/2021 01/10/2022 Assessment & Plan (01/03/2021 8:36 AM DEVELOPMENT ADVISOR): Add low dose xanax Acute bilateral low back sejal n without sciatica 01/03/2021 01/10/2022 Assessment & Plan (05/18/2021 2:44 PM CDT): Acute on chronic. Unsure of etiology. X-rays show degenerative changes with no other issues. She said a history of back surgery approximately 5 years ago but had been doing well up until recently. She has seen Dr. Whitney and has had a colonoscopy. She has been using Percocet without much relief. Etiology undetermined. Ct ls spine Assessment & Plan (03/23/2021 9:04 AM CDT): Percocet bid prn Assessment & Plan (03/07/2021 3:01 PM CDT): Ms. Peterson is status post L4-5 decompression fusion in 2016. She did very well from this with no problems until recently. She does not have any leg symptoms associated with this. We will get AP and flexion-extension lumbar spine films. She will proceed with physical therapy for back stretching and strengthening exercises as ordered by her PCP. I plan to see her back in 4 months for re-evaluation. If she has no relief in the interim and wishes further workup, I would get an MRI of the lumbar spine. 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 Continue current treatment. Rib fractures 06/06/2016 03/12/2024 Immunizations Immunization Administration Dates Next Due Influenza, Unspecified 12/10/2022(Deferr ed: Patient Refused),11/06/2022(Deferred: Patient Refused),07/28/2022(Deferred: Patient Refused),07/28/2021(Deferred: Patient Refused),07/28/2021(Deferred: Patient Refused) Pfizer SARS-CoV-2 Monovalent Vaccination (12+ Yrs) PURPLE 02/02/2021,01/12/2021 Pneumococcal Conjugate Pcv20 11/06/2022 Social History Tobacco Use Types Packs/Day Years Used Date Smoking Tobacco: Former Cigarettes Q uit: 2015 Smokeless Tobacco: Never Tobacco Cessation:Counseling Given: Not Answered [facility] Utilities Answer Date Recorded In the past 12 months has [employer], [employer], oil, or water [employer] threatened to shut off services in your home? No 03/24/2024 Social Connection and Isolat ion Panel [NHANES] Answer Date Recorded In a typical week, how many times do you talk on the phone with family, friends, or neighbors? Three times a week 03/24/2024 How often do you get togethe r with friends or relatives? More than three times a week 03/24/2024 How often do you attend chur ch or sikh services? Never 03/24/2024 Do you belong to any clubs o r organizations such as christian groups, unions, fraternal or athletic groups, or school groups? No 03/24/2024 How often do you attend meet ings of the clubs or organizations you belong to? Never 03/24/2024 Are you , , di vorced, , never , or living with a partner? 03/24/2024 AUDIT-C Answer Date Recorded Q1: How often do you have a drink containing alc ohol? Never 06/25/2023 Average Number of Drinks Not on file 023 Frequency of Binge Drinking Not on file 05/29 Overall Financial Resource Strain (CARDIA) Answe r Date Recorded How hard is it for you to pa y for the very basics like food, housing, medical care, and heating? Not hard at all 03/24/2024 PHQ-2 Answer Date Recorded PHQ-2 Total Score (If total score is 3 or more points, staff should administer the PHQ-9) 0 06/17/2023 Hunger Vital Sign Answer Date Recorded Within the past 12 months, y ou worried that your food would run out before you got the money to buy more. Never true 03/24/20 24 Within the past 12 months, t he food you bought just didn't last and you didn't have money to get more. Never true 03/24/2024 PRAPARE - Transportation Answer Date Re corded In the past 12 months, has l ack of transportation kept you from medical appointments or from getting medications? No 02/26 In the past 12 months, has l ack of transportation kept you from meetings, work, or from getting things needed for daily living? No 03/24/2024 Housing Stability Vital Sign Answer Jarret e Recorded In the last 12 months, was t here a time when you were not able to pay the mortgage or rent on time? No 03/04/2024 In the last 12 months, how many places have you lived? 1 03/04/2024 In the last 12 months, was t here a time when you did not have a steady place to sleep or slept in a halfway (including now)? No 03/04/2024 Housing Stability Vital Sign Answer Jarret e Recorded In the last 12 months, was t here a time when you were not able to pay the mortgage or rent on time? No 03/24/2024 In the past 12 months, how m any times have you moved where you were living? 0 03/24/2024 At any time in the past 12 m [facility], were you homeless or living in a halfway (including now)? No 03/24/2024 Personal Safety Answer Date Recorded Have you ever been in or are you currently in a harmful physical or emotional relationship or is someone making you feel afraid or unsafe? 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 Gender Identity Not on file Sexual Orientation Not on file Last Filed Vital Signs Vital Sign Reading Time Taken Comments Blood Pressure 118/69 04/02/2024 11:39 AM CDT Pulse 65 04/02/2024 11:39 AM CDT Temperature 36.7 C (98.1 F) 03/19/2024 10:43 AM CDT Respiratory Rate 20 03/19/2024 10:4 3 AM CDT Oxygen Saturation 92% 04/02/2024 11: 39 AM CDT Inhaled Oxygen Concentration - - Weight 57.5 kg (126 lb 12.8 oz) 024 11:39 AM CDT Height 152.4 cm (5') 03/04/2024 5:12 AM CDT Body Mass Index 24.76 03/04/2024 5:12 AM CDT Plan of Treatment Not on file Goals Goal Patient Goal Type Associated Problems Recent Progress Patient-Stated? Author JANENE General Goal - Patient establishes care with [facility] ACO Care Management Graciela Abraham, RN Note: Problem: Lack of [facility] communication Interventions: - Provide coordination between [facility] company and patient. - Ensure [facility] has appropriate referral and orders to establish care with patient. - Follow up with patient to ensure initial visit was completed by [facility] and that a [facility] plan has been started. JANENE General Goal - Patient schedules and keeps appointments with all recommended providers ACO Care Management Graciela Abraham, RN Note: Problem: Potential for medical complications and readmission if follow-up appointments are not scheduled Interventions: - Ensure all follow-up appointments are scheduled, all prescribed medications have been received. - Address any barriers for keeping scheduled appointment. - Coordinate with patient/caregiver(s) to ensure patient is able to keep scheduled appointment. - Emphasize importance of keeping scheduled appointments. - Identify and discuss questions for next provider visit. - Follow up with patient after scheduled appointment(s) to review any new orders or changes made to medication regimen. JANENE General Goal - Patient will increase compliance with medication orders ACO Care Management Graciela Abraham, RN Note: Problem: Risk for readmission due to lack of medication adherence Interventions: - Review medication list as ordered by discharging physician. Compare this to what patient is currently taking. - Address any barriers to taking discharge medications as ordered. Coordinate with appropriate personnel (drug abuse social worker, physician, pharmacist, etc.) to help increase compliance with medication regimen. - Review with patient/caregiver the medication schedule in detail. Review when to call their physician for potential medication complications and ensure they verbalize understanding of instructions. JANENE General Goal - Patient / caregiver verbalizes lifestyle changes necessary to meet self-care needs and executes self-care activities to utmost capability ACO Care Management Graciela Abraham RN Note: Problem: At Risk for Self Care Deficit Interventions: - Assess patient's level of dependence on others. Guide the patent in accepting the needed amount of assistance. - Contact current caregiver and assess their involvement with patient and level of assistance provided. - Assess appropriateness for Home Health. Start referral process if skilled need is present. - Encourage independent ADL's as appropriate. Ensure patient has the appropriate tools at home to be as independent as possible. - Provide fall prevention education to patient and caregiver. - Evaluate need for assistive devices. - Refer to if appropriate and patient is agreeable. JANENE General Goal - Patient/caregiver will verbalize understanding of fall prevention techniques and will sustain no additional falls during Care Management program ACO Care Management Graciela Abraham RN Note: Problem: At Risk for Falls related to history of falls Interventions: - Review fall prevention/home safety guidelines with patient. Send educational materials if needed. - Assess patient's current tools and equipment used currently. Evaluate if additional tools or DME are needed to improve safety and decrease fall risk. - Assess appropriateness for Home Health. Start referral process if skilled need is present. - Evaluate need for Lifeline or other medical alert device. - Discuss importance of notifying primary provider when a fall occurs with details about the circumstances of the fall. - Refer to SW if appropriate and patient is agreeable. Procedures Procedure Name Priority Date/Time Associated Diagnosis Comments HEPATITIS C ANTIBODY Routine 04/19/2022 8:54 AM CDT Elevated antinuclear antibody (KARAN) level Pain in other joint Other low back pain Primary generalized (osteo)arthritis Crohn's disease of colon without complication (HCC) COLONOSCOPY Routine 04/24/2021 SCREENING MAMMOGRAM BILATERAL W VINNIE 03/15/2021 12:42 PM CDT from Last 3 Months or Most Recently Relevant to Health Maintenance Results * Hepatitis C antibody (04/19/2022 8:54 AM CDT) Hep C Ab Nonreactive Nonreactive [facility] Comment: Interpretive Data Nonreactive: Antibodies to HCV not detected. Does NOT exclude the possibility of recent exposure to HCV. Equivocal: Equivocal for HCV antibodies. Supplemental molecular testing will be automatically performed to determine infection status in accordance with current CDC screening recommendations. Reactive: Positive for HCV antibodies. This may represent current or past HCV infection. Supplemental molecular testing will be automatically performed to determine current infection status in accordance with current CDC screening recommendations. Interpretive data was last revised on 2020. Blood 04/19/2022 8:54 AM CDT 04/19/2022 12:05 PM CDT us Sharri Carl MD LAB MICROBIOLOGY - GENERAL ORDERABLES Final Result [facility] [address] Department [place] [address] * (ABNORMAL) Colonoscopy (04/24/2021) Anatomical Region Laterality Modality Other 04/24/2021 us Radha Whitney MD ENDOSCOPY PROCEDURES Yvrose l Result * Screening Mammogram Bilateral W Vinnie (03/15/2021 12:42 PM CDT) Anatomical Region Laterality Modality Breast Bilateral Mammography 03/15/2021 1:00 PM CDT Narrative 03/15/2021 1:18 PM CDT Patient Name: STEPHEN PETERSON Dr: Dhruv GiraldoOLoganB: 1955 Exam Date: 03/15/21 1242 Age: 65 Sex: Female MR#: [id number] Loc: RADIOLOGY REPORT Order #[id number] [facility] Merrick Bilat Screening 3D Signed - MG BILATERAL DIGITAL SCREENING MAMMOGRAM 3D/2D WITH MEDIOLATERAL OBLIQUE CRANIOCAUDAL: 03/15/2021 The study was acquired using full field digital technology and interpreted from soft copy. 2D digital mammographic views, as well as 3D digital tomosynthesis were performed in the CC and MLO projections. CLINICAL: Routine mammogram. Patient denies any problems. Mother with breast cancer. No personal history of breast cancer. COMPARISONS: Comparison is made to exams dated: 07/27/2019 ultrasound - [facility] and 07/08/2019 mammogram - [facility]. BREAST TISSUE: The tissue of both breasts is almost entirely fatty. FINDINGS: There are stable benign lymph nodes in the lateral left breast, as characterized on prior ultrasound. No significant masses, calcifications, or other findings are seen in either breast. There has been no significant interval change. IMPRESSION: BI-RAD 2 BENIGN There is no mammographic evidence of malignancy. A 1 year screening mammogram is recommended. The patient has been or will be contacted. We recommend annual screening mammography for women at average risk of breast cancer beginning at age 40, based on guidelines of the [employer] (ACR Practice Parameter for the Performance of Screening and Diagnostic Mammography) and [employer]. For women with an elevated risk of breast cancer, please refer to the ACR Practice Parameter for specific screening recommendations. The patient will be entered into a reminder system with a target due date of 1 year for her next screening exam. Electronically signed by: Josh Bender M.D., md/:03/15/2021 13:18:50 Aircraft Powerplant Repairer: Natalee Dumont)(Nory), [facility]- [facility] letter sent: Normal Exam Reading location: BI-RADS: 2 Benign REPORT ELECTRONICALLY SIGNED IN OTHER VENDOR SYSTEM Resulting Agency Comment O Procedure Note Josh Bender MD - 03/15/2021 Patient Name: STEPHEN PETERSON Dr: Dhruv GiraldoO.B: 1955 Exam Date: 03/15/21 1242 Age: 65 Sex: Female MR#: [id number] Loc: RADIOLOGY REPORT Order #[id number] [facility] Merrick Bilat Screening 3D Signed - MG BILATERAL DIGITAL SCREENING MAMMOGRAM 3D/2D WITH MEDIOLATERAL OBLIQUE CRANIOCAUDAL: 03/15/2021 The study was acquired using full field digital technology andinterpreted from soft copy. 2D digital mammographic views, as well as 3D digital tomosynthesis were performed in the CC and MLO projections. CLINICAL: Routine mammogram. Patient denies any problems. Mother withbreast cancer. No personal history of breast cancer. COMPARISONS: Comparison is made to exams dated: [facility]27[facility]2019 [facility] and 07/08/2019 mammogram - [facility]. BREAST TISSUE: The tissue of both breasts is almost entirely fatty. FINDINGS: There are stable benign lymph nodes in the lateral left breast,as characterized on prior ultrasound. No significant masses, calcifications, or other findings are seen ineither breast. There has been no significant interval change. IMPRESSION: BI-RAD 2 BENIGN There is no mammographic evidence of malignancy. A 1 year screeningmammogram is recommended. The patient has been or will be contacted. We recommend annual screening mammography for women at average risk ofbreast cancer beginning at age 40, based on guidelines of the [employer] (ACR Practice Parameter for the Performance of Screening and Diagnostic Mammography) and [employer]. For women with an elevated risk of breast cancer, pleaserefer to the ACR Practice Parameter for specific screening recommendations. The patient will be entered into a reminder system with a target due dateof 1 year for her next screening exam. Electronically signed by: Josh Bender M.D., md/:03/15/2021 13:18:50 Aircraft Powerplant Repairer: Natalee Dumont)(Nory), [facility]- [facility] letter sent: Normal Exam Reading location: BI-RADS: 2 Benign REPORT ELECTRONICALLY SIGNED IN OTHER VENDOR SYSTEM Dhruv Giraldo DO IMG MAMMO PROCEDURES Fin al Result from Last 3 Months or Most Recently Relevant to Health Maintenance Insurance [facility]IC[facility] Address: [address] [address] [place] [address] [facility] MEDICARE Advance Directives For more information, please contact: [phone] Documents on File Type Date Recorded Patient Slot Floor Attendant Expl anation ADVANCE DIRECTIVE 01/03/2021 * Full Code (Latest Code Status on File) Date Activated Date Inactivated Comments 03/04/2024 7:53 AM 03/10/2024 8:14 PM * Full Code Date Activated Date Inactivated Comments 02/24/2024 4:34 PM 02/28/2024 7:11 PM Care Teams Bank Consultant Relationship Specialty Start Date End Date Dhruv Giraldo DO PCP - General Family Medicine 01/02/21 Dhruv Harley MD Family Medicine 01/02/21
--- OUTSIDE RECORDS SUMMARY | 2025-05-25 10:03 | XMS_ITS | Encounter Summary ---
Author Organization [facility] Facility Care Team Providers Care Competitive Shopper Name Role Phone Rosi Masters MD Primary Care Provider [phone] Radha Whitney MD Primary Care Provider [phone] Dhruv Harley MD Primary Care Provider [phone] Dhruv Giraldo DO Primary Care Provider + Radha Whitney MD Unavailable [phone] Dhruv Harley MD Unavailable [phone] Graciela Murphy RN Unavailable [phone] Encounter Details Date Type Department Care Team (Latest Contact Info) Description 02/01/2017 Orders Only [facility] CLINCONV ProviderYoselin MD [address] [place] [address] Social History Tobacco Use Types Packs/Day Years Used Date Smoking Tobacco: Never Assessed Comments Unknown Sex and Gender Information Value Date Recorded Sex Assigned at Not on file 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 us Historical Provider Final Res ult documented in this encounter Visit Diagnoses Not on filedocumented in this encounter Additional Health Concerns Infection Onset Date Last Indicated Resolved Time COVID: Suspected 06/17/2023 06/17/2023 06/17/2023 11:53 AM CDT documented as of this encounter Care Teams Competitive Shopper Relationship Specialty Start Date End Date Rosi Masters MD PCP - General 07/07/19 08/07/20 Radha Whitney MD PCP - General 08/08/20 12/05/20 Dhruv Harley MD PCP - General Family Medicine 12/06/20 01/01/21 Dhruv Giraldo DO PCP - General Family Medicine 01/02/21 Radha Whitney MD 12/06/20 01/01/21 Dhruv Harley MD Family Medicine 01/02/21 Graciela Murphy, RN [address] [place] [address] [place] [address] Humanities Coordinator 03/22/24 04/02/24 documented as of this encounter
--- OUTSIDE RECORDS SUMMARY | 2025-05-25 10:03 | XMS_ITS | Encounter Summary ---
Author Organization [facility] Facility Care Team Providers Care Collections Assistant Name Role Phone Rosi Masters MD Primary Care Provider [phone] Radha Whitney MD Primary Care Provider [phone] Dhruv Harley MD Primary Care Provider [phone] Dhruv Giraldo DO Primary Care Provider + Radha Whitney MD Unavailable [phone] Dhruv Harley MD Unavailable [phone] Graciela Murphy RN Unavailable [phone] Encounter Details Date Type Department Care Team (Latest Contact Info) Description 02/20/2017 Orders Only [facility] CLINCONV ProviderYoselin MD [address] [place] [address] Social History Tobacco Use Types Packs/Day Years Used Date Smoking Tobacco: Never Assessed Comments Unknown Sex and Gender Information Value Date Recorded Sex Assigned at Not on file 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 us Historical Provider Final Res ult documented in this encounter Visit Diagnoses Not on filedocumented in this encounter Additional Health Concerns Infection Onset Date Last Indicated Resolved Time COVID: Suspected 06/17/2023 06/17/2023 06/17/2023 11:53 AM CDT documented as of this encounter Care Teams Collections Assistant Relationship Specialty Start Date End Date Rosi Masters MD PCP - General 07/07/19 08/07/20 Radha Whitney MD PCP - General 08/08/20 12/05/20 Dhruv Harley MD PCP - General Family Medicine 12/06/20 01/01/21 Dhruv Giraldo DO PCP - General Family Medicine 01/02/21 Radha Whitney MD 12/06/20 01/01/21 Dhruv Harley MD Family Medicine 01/02/21 Graciela Murphy, RN [address] [place] [address] [place] [address] Ship Boss 03/22/24 04/02/24 documented as of this encounter
--- OUTSIDE RECORDS SUMMARY | 2025-05-25 10:03 | XMS_ITS | Encounter Summary ---
Author Organization [facility] Facility Care Team Providers Care General I Farmworker Name Role Phone Rosi Masters MD Primary Care Provider [phone] Radha Whitney MD Primary Care Provider [phone] Dhruv Harley MD Primary Care Provider [phone] Dhruv Giraldo DO Primary Care Provider + Radha Whitney MD Unavailable [phone] Dhruv Harley MD Unavailable [phone] Graciela Murphy RN Unavailable [phone] Encounter Details Date Type Department Care Team (Latest Contact Info) Description 03/08/2017 Orders Only [facility] CLINCONV ProviderYoselin MD [address] [place] [address] Social History Tobacco Use Types Packs/Day Years Used Date Smoking Tobacco: Never Assessed Comments Unknown Sex and Gender Information Value Date Recorded Sex Assigned at Not on file 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 us Historical Provider [facility] CARDIAC SERVICES PROCE DURES Final Result * CARDIOLOGY REPORT (03/08/2017 12:00 AM CDT) Anatomical Region Laterality Modality Other Narrative 03/08/2017 12:00 AM CDT Ordered by an unspecified provider. us Historical Provider CV CARDIAC SERVICES PROCE DURES Final Result documented in this encounter Visit Diagnoses Not on filedocumented in this encounter Additional Health Concerns Infection Onset Date Last Indicated Resolved Time COVID: Suspected 06/17/2023 06/17/2023 06/17/2023 11:53 AM CDT documented as of this encounter Care Teams General I Farmworker Relationship Specialty Start Date End Date Rosi Masters MD PCP - General 07/07/19 08/07/20 Radha Whitney MD PCP - General 08/08/20 12/05/20 Dhruv Harley MD PCP - General Family Medicine 12/06/20 01/01/21 Dhruv Giraldo DO PCP - General Family Medicine 01/02/21 Radha Whitney MD 12/06/20 01/01/21 Dhruv Harley MD Family Medicine 01/02/21 Graciela Murphy RN [address] [place] [address] [place] [address] Truss Puller Helper 03/22/24 04/02/24 documented as of this encounter
--- OUTSIDE RECORDS SUMMARY | 2025-05-25 10:04 | XMS_ITS | Encounter Summary ---
Author Organization [facility] Facility Care Team Providers Care Spring Fitter Name Role Phone Rosi Masters MD Primary Care Provider [phone] Radha Whitney MD Primary Care Provider [phone] Dhruv Harley MD Primary Care Provider [phone] Dhruv Giraldo DO Primary Care Provider + Radha Whitney MD Unavailable [phone] Dhruv Harley MD Unavailable [phone] Graciela Murphy RN Unavailable [phone] Encounter Details Date Type Department Care Team (Latest Contact Info) Description 07/11/2015 Orders Only [facility] CLINCONV ProviderYoselin MD [address] [place] [address] Social History Tobacco Use Types Packs/Day Years Used Date Smoking Tobacco: Never Assessed Comments Unknown Sex and Gender Information Value Date Recorded Sex Assigned at Not on file 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 us Historical Provider [facility] C[facility]IAC [facility] Final Result documented in this encounter Visit Diagnoses Not on filedocumented in this encounter Additional Health Concerns Infection Onset Date Last Indicated Resolved Time COVID: Suspected 06/17/2023 06/17/2023 06/17/2023 11:53 AM CDT documented as of this encounter Care Teams Spring Fitter Relationship Specialty Start Date End Date Rosi Masters MD PCP - General 07/07/19 08/07/20 Radha Whitney MD PCP - General 08/08/20 12/05/20 Dhruv Harley MD PCP - General Family Medicine 12/06/20 01/01/21 Dhruv Giraldo DO PCP - General Family Medicine 01/02/21 Radha Whitney MD 12/06/20 01/01/21 Dhruv Harley MD Family Medicine 01/02/21 Graciela Murphy, RN [address] [place] [address] [place] [address] Lock Corner Machine Operator 03/22/24 04/02/24 documented as of this encounter
--- OUTSIDE RECORDS SUMMARY | 2025-05-25 10:04 | XMS_ITS | Encounter Summary ---
Author Organization [facility] Facility Care Team Providers Care Human Resources Executive Assistant Name Role Phone Rosi Masters MD Primary Care Provider [phone] Radha Whitney MD Primary Care Provider [phone] Dhruv Harley MD Primary Care Provider [phone] Dhruv Giraldo DO Primary Care Provider + Radha Whitney MD Unavailable [phone] Dhruv Harley MD Unavailable [phone] Graciela Murphy RN Unavailable [phone] Encounter Details Date Type Department Care Team (Latest Contact Info) Description 06/05/2016 Orders Only [facility] ProviderYoselin MD [address] [place] [id number] Social History Tobacco Use Types Packs/Day Years Used Date Smoking Tobacco: Never Assessed Comments Unknown Sex and Gender Information Value Date Recorded Sex Assigned at Not on file Legal Sex Female 9:15 AM [employer] Gender Identity Not on file Sexual Orientation Not on file documented as of this encounter Plan of Treatment Not on file documented as of this encounter Procedures Procedure Name Priority Date/Time Associated Diagnosis Comments PROCEDURE - RESULT 06/05/2016 12 :00 AM CDT documented in this encounter Results * PROCEDURE - RESULT (06/05/2016 12:00 AM CDT) Narrative 06/05/2016 12:00 AM CDT Ordered by an unspecified provider. us Historical Provider Final Res ult documented in this encounter Visit Diagnoses Not on filedocumented in this encounter Additional Health Concerns Infection Onset Date Last Indicated Resolved Time COVID: Suspected 06/17/2023 06/17/2023 06/17/2023 11:53 AM CDT documented as of this encounter Care Teams Human Resources Executive Assistant Relationship Specialty Start Date End Date Rosi Masters MD PCP - General 07/07/19 08/07/20 Radha Whitney MD PCP - General 08/08/20 12/05/20 Dhruv Harley MD PCP - General Family Medicine 12/06/20 01/01/21 Dhruv Giraldo DO PCP - General Family Medicine 01/02/21 Radha Whitney MD 12/06/20 01/01/21 Dhruv Harley MD Family Medicine 01/02/21 Graciela Murphy, RN [address] [place] [address] [place] [address] Insurance Rater 03/22/24 04/02/24 documented as of this encounter
--- OUTSIDE RECORDS SUMMARY | 2025-05-25 10:04 | XMS_ITS | Data Portability ---
Author Organization [facility] Address [address] [place] [address] Assessment No assessment recorded. Plan of Treatment Reminders Order Date Submit Date Provider Last Modified By Organization Details Last Modified Time Details Appointments ANY 15 2024 09:45A Nory Giraldo, DO Not available Not available Not available Lab BMP, serum or plasma 2023 024 [facility] (Lab), [address] [place], [address], 03/30/2024 12:22:53 CBC 2023 024 [facility] (Lab), [address] [place], [address], 03/30/2024 16:21:06 lipid panel, serum 2023 024 [facility] (Lab), [address] [place], [address], 03/30/2024 12:22:51 TSH, serum or plasma 2023 024 [facility] (Lab), [address] [place], [address], 03/30/2024 12:22:56 copper , blood 2023 024 [facility] (Lab), [address] [place], [address], 03/30/2024 16:21:06 lead, blood 2023 024 [facility] (Lab), [address], [place], [address], 03/30/2024 12:22:52 hepati c functi on panel, serum 2023 024 [facility] (Lab), [address], [place], [address], 03/30/2024 12:22:55 BNP (B-typ e natriu retic peptid e), serum or plasma 2023 024 [facility] (Lab), [address], [place], [address], 03/30/2024 16:21:05 CMP, serum or plasma 2023 024 [facility] (Lab), [address], [place], [address], 01/17/2024 20:07:02 CBC 2023 024 [facility] (Lab), [address], [place], [address], 01/17/2024 20:27:59 hepati c functi on panel, serum 2023 024 [facility] (Lab), [address], [place], [address], 01/17/2024 20:07:03 amylas e, serum or plasma 2023 024 [facility] (Lab), [address], [place], [address], 01/17/2024 20:07:03 Referral None record ed. Procedures None record ed. Surgeries None record ed. Imaging XR, knee, 1 or 2 view - right 2023 024 [facility], [address] , [facility] [address], [place], [address], 10/07/2024 12:07:46 CT, abdome n + pelvis , w/o contra st [address] [facility], [address], [place], [address], 01/20/2024 08:19:18 Medication Orders Lunest a 2 mg tablet 2024 025 [facility] [id number] [facility], [address] [place] [address], [address], 01/11/2025 19:00:59 ondans etron 4 mg disint egrati ng tablet 2023 024 [email or web address] [id number], [address], 01/11/2025 12:05:43 amitri ptylin e 50 mg tablet 2023 024 [email or web address] [facility] [id number], [address], 09/07/2024 15:28:59 buspir one 10 mg tablet 2023 024 [email or web address] [facility] [id number], [address], 05/05/2024 16:02:58 Wellbu yomaira XL 150 mg 24 hr tablet , extend ed releas e 2023 024 [facility] [id number], [address], 05/05/2024 11:09:10 cyanoc obalam in (vit B-12) 1,000 mcg/mL inject ion soluti on 2023 024 [email or web address] [facility] [id number], [address], 05/05/2024 16:02:58 triamt erene 37.5 mg-hyd rochlo rothia zide 25 mg tablet 2023 024 [email or web address] [facility] [id number] In [facility], [address], [place], [address], 05/18/2024 17:00:41 Patient TargetsNo targets recorded. Patient InstructionsNo instructions recorded. Reason for Referral None Reported. Results Created Date Observation Date Name Description Value Unit Range Abnormal Flag Note LastModifiedBy Organization Detail LastModifiedTime 01/17/20 24 01/17/2024 COMPR EHENS WALTER METAB OLIC PANEL sodium 143 mmol/ L 134-14 4 normal Not Available [facility] (Lab) [address] [place], [address], 01/17/2024 20:07:02 01/17/20 24 01/17/2024 COMPR EHENS WALTER METAB OLIC PANEL potassium 3.0 mmol/ L 3.5-5. 2 low Not Available [facility] (Lab) [address] [place], [address], 01/17/2024 20:07:02 01/17/20 24 01/17/2024 COMPR EHENS WALTER METAB OLIC PANEL chloride 105 mmol/ L 96-106 normal Not Available [facility] (Lab) [address] [place], [address], 01/17/2024 20:07:02 01/17/20 24 01/17/2024 COMPR EHENS WALTER METAB OLIC PANEL carbon dioxide 29 mmol/ L 20-29 normal Not Available [facility] (Lab) [address] [place], [address], 01/17/2024 20:07:02 01/17/20 24 01/17/2024 COMPR EHENS WALTER METAB OLIC PANEL anion gap 13.0 mmol/ L Not Available [facility] (Lab) [address] [place], [address], 01/17/2024 20:07:02 01/17/20 24 01/17/2024 COMPR EHENS WALTER METAB OLIC PANEL blood urea nitrogen 5 mg/dL 8-27 low Not Available [facility] ([facility]) [address] [place], [address], 01/17/2024 20:07:02 01/17/20 24 01/17/2024 COMPR EHENS WALTER METAB OLIC PANEL creatinine 0.68 mg/dL 0.76-1 .27 low Not Available [facility] (Lab) [address] [place], [address], 01/17/2024 20:07:02 01/17/20 24 01/17/2024 COMPR EHENS WALTER METAB OLIC PANEL glomerular filtration rate 96 mL/mi n/1 Not Available [facility] (Lab) [address] [place], [address], 01/17/2024 20:07:02 01/17/20 24 01/17/2024 COMPR EHENS WALTER METAB OLIC PANEL BUN creatinine ratio 7 10-28 low Not Available [facility] ([facility]) [address] [place], [address], 01/17/2024 20:07:02 01/17/20 24 01/17/2024 COMPR EHENS WALTER METAB OLIC PANEL glucose 89 mg/dL 70-99 normal Not Available [facility] (Lab) [address] [place], [address], 01/17/2024 20:07:02 01/17/20 24 01/17/2024 COMPR EHENS WALTER METAB OLIC PANEL osmolality calculated 282 280-30 1 normal Not Available [facility] (Lab) [address] [place], [address], 01/17/2024 20:07:02 01/17/20 24 01/17/2024 COMPR EHENS WALTER METAB OLIC PANEL calcium 9.0 mg/dL 8.7-10 .3 normal Not Available [facility] (Lab) [address] [facility] [place], [address], 01/17/2024 20:07:02 01/17/20 24 01/17/2024 COMPR EHENS WALTER METAB OLIC PANEL bilirubin total 0.3 mg/dL 0.0-1. 2 normal Not Available [facility] (Lab) [address], [place], [address], 01/17/2024 20:07:02 01/17/20 24 01/17/2024 COMPR EHENS WALTER METAB OLIC PANEL aspartate amino transferase 28 IU/L 0-40 normal Not Available [facility] (Lab) [address], [place], [address], 01/17/2024 20:07:02 01/17/20 24 01/17/2024 COMPR EHENS WALTER METAB OLIC PANEL alanine aminotransfe rase 16 IU/L 0-32 normal Not Available [facility] ([facility]) [address], [place], [address], 01/17/2024 20:07:02 01/17/20 24 01/17/2024 COMPR EHENS WALTER METAB OLIC PANEL total protein 6.5 g/dL 6.0-8. 5 normal Not Available [facility] (Lab) [address] [place], [address], 01/17/2024 20:07:02 01/17/20 24 01/17/2024 COMPR EHENS WALTER METAB OLIC PANEL albumin level 3.3 g/dL 3.8-4. 8 low Not Available [facility] (Lab) [address] [place], [address], 01/17/2024 20:07:02 01/17/20 24 01/17/2024 COMPR EHENS WALTER METAB OLIC PANEL globulin 3.2 g/dL 1.5-4. 5 normal Not Available [facility] (Lab) [address] [place], [address], 01/17/2024 20:07:02 01/17/20 24 01/17/2024 COMPR EHENS WALTER METAB OLIC PANEL albumin globulin ratio 1.0 1.2-2. 2 low Not Available [facility] (Lab) [address] [place], [address], 01/17/2024 20:07:02 01/17/20 24 01/17/2024 COMPR EHENS WALTER METAB OLIC PANEL alkaline phosphatase 207 IU/L 44-121 high Not Available [facility] (Lab) [address] [place], [address], 01/17/2024 20:07:02 01/17/20 24 01/17/2024 LIVER PANEL bilirubin direct <=0.20 mg/dL 0.00-0 .40 normal Not Available [facility] (Lab) [address] [place], [address], 01/17/2024 20:07:03 01/17/20 24 01/17/2024 AMYLA SE amylase 76 U/L 31-110 normal Not Available [facility] (Lab) [address] [place], [address], 01/17/2024 20:07:03 01/17/20 24 01/17/2024 COMPL ETE BLOOD COUNT NO DIFF white blood count 8.6 x10e3 /uL 3.4-10 .8 normal Not Available [facility] (Lab) [address] [place], [address], 01/17/2024 20:27:59 01/17/20 24 01/17/2024 COMPL ETE BLOOD COUNT NO DIFF red blood count 3.58 x10e6 /uL 3.77-5 .28 low Not Available [facility] (Lab) [address] [place], [address], 01/17/2024 20:27:59 01/17/20 24 01/17/2024 COMPL ETE BLOOD COUNT NO DIFF hemoglobin 11.4 g/dL 11.1-1 5.9 normal Not Available [facility] (Lab) [address] [facility] [place], [address], 01/17/2024 20:27:59 01/17/20 24 01/17/2024 COMPL ETE BLOOD COUNT NO DIFF hematocrit 35.2 % 34.0-4 6.6 normal Not Available [facility] (Lab) [address], [place], [address], 01/17/2024 20:27:59 01/17/20 24 01/17/2024 COMPL ETE BLOOD COUNT NO DIFF mean corpuscular volume 98 fL 79-97 high Not Available [facility] (Lab) [address] [place], [address], 01/17/2024 20:27:59 01/17/20 24 01/17/2024 COMPL ETE BLOOD COUNT NO DIFF mean corpuscular hemoglobin 31.8 pg 26.6-3 3.0 normal Not Available [facility] (Lab) [address], [place], [address], 01/17/2024 20:27:59 01/17/20 24 01/17/2024 COMPL ETE BLOOD COUNT NO DIFF mean corpuscular HGB conc 32.4 g/dL 31.5-3 5.7 normal Not Available [facility] (Lab) [address], [place], [address], 01/17/2024 20:27:59 01/17/20 24 01/17/2024 COMPL ETE BLOOD COUNT NO DIFF red cell distribution width 15.7 % 11.5-1 4.5 high Not Available [facility] (Lab) [address], [place], [address], 01/17/2024 20:27:59 01/17/20 24 01/17/2024 COMPL ETE BLOOD COUNT NO DIFF platelet count 300 x10e3 /uL 150-45 0 normal Not Available [facility] (Lab) [address] [place], [address], 01/17/2024 20:27:59 01/17/20 24 01/17/2024 COMPL ETE BLOOD COUNT NO DIFF mean platelet volume 9.3 fL 8.9-12 .7 normal Not Available [facility] (Lab) [address] [place], [address], 01/17/2024 20:27:59 01/17/20 24 01/17/2024 COMPL ETE BLOOD COUNT NO DIFF nucleated red blood cells auto 0 % 0-0 normal Not Available [facility] (Lab) [address] [facility], [place], [address], 01/17/2024 20:27:59 03/27/20 24 03/30/2024 LIPID PANEL , STAND PAMELLA cholesterol, total 100 mg/dL <200 normal Not Available [address], [address], 03/30/2024 12:22:51 03/27/20 24 03/30/2024 LIPID PANEL , STAND PAMELLA HDL cholesterol 57 mg/dL > or = 50 normal Not Available [address] [place], [address], 03/30/2024 12:22:51 03/27/20 24 03/30/2024 LIPID PANEL , STAND PAMELLA triglyceride s 67 mg/dL <150 normal Not Available [employer] [address] [place], [address], 03/30/2024 12:22:51 03/27/20 24 03/30/2024 LIPID PANEL , STAND PAMELLA LDL-choleste rol 29 mg/dL _(marita c) normal Refer ence range : <100 Judith able range <100 mg/dL for prima ry preve ntion ; <70 mg/dL for patie nts with CHD or diabe tic patie nts with > or = 2 CHD risk facto rs. LDL-C is now calcu lated using the Aleisha n-Hop kins calcu latvalentino n, which is a valid ated novel metho d lului archie thorpe r accur acy than the Fried alek equat ion in the estim ation of LDL-C . Aleisha n SS et al. ASHWINI. 2013; 310(1 9): 2061- 2068 (http ://ed ucati on.Qu David ranulfosimplifyMDs. com/f aq/FA Q164) Not Available [facility] [address], [place], [address], 03/30/2024 12:22:51 03/27/20 24 03/30/2024 LIPID PANEL , STAND PAMELLA chol/HDLC ratio 1.8 (calc ) <5.0 normal Not Available [facility] [address], [place], [address], 03/30/2024 12:22:51 03/27/20 24 03/30/2024 LIPID PANEL , STAND PAMELLA non HDL cholesterol 43 mg/dL _(marita c) <130 normal For patie nts with diabe parvin plus 1 major ASCVD risk facto r, treat ing to a non-H DL-C goal of <100 mg/dL (LDL- C of <70 mg/dL ) is consi dered a thera peuti c optio n. Not Available [facility] [address] , [place], [address], 03/30/2024 12:22:51 03/27/20 24 03/30/2024 LEAD (VENO US), OSHA lead (venous), osha 1.0 mcg/d L Indus trial Expos ure: <40.0 mcg/d L mcg/d L = mcg/1 00g for OSHA (Refe r to curre nt reynaldo nment al regul ation s for expos ure crite steph.) This test was devel oped and its stuart tical perfo rmanc e mallory cteri stics have been deter mined by [facility]. It has not been clear ed or appro hannah by the FDA. This assay has been valid ated pursu ant to the CLIA regul ation s and is used for clini marita purpo ses. Not Available [facility] [address] [address] [place], [address], 03/30/2024 12:22:52 03/27/20 24 03/30/2024 BASIC METAB OLIC PANEL glucose 96 mg/dL 65-99 normal Fasti ng refer ence inter bassem Not Available [address], [address], 03/30/2024 12:22:53 03/27/20 24 03/30/2024 BASIC METAB OLIC PANEL urea nitrogen (BUN) 8 mg/dL 7-25 normal Not Available [address], [address], 03/30/2024 12:22:53 03/27/20 24 03/30/2024 BASIC METAB OLIC PANEL creatinine 0.52 mg/dL 0.50-1 .05 normal Not Available [address], [address], 03/30/2024 12:22:53 03/27/20 24 03/30/2024 BASIC METAB OLIC PANEL eGFR 102 mL/mi n/1.7 3m2 > or = 60 normal Not Available [address], [address], 03/30/2024 12:22:53 03/27/20 24 03/30/2024 BASIC METAB OLIC PANEL BUN/creatini ne ratio SEE NOTE: (calc ) 6-22 Not Repor omayra: BUN and Creat inine are withi n refer ence range . Not Available [address], [address], 03/30/2024 12:22:53 03/27/20 24 03/30/2024 BASIC METAB OLIC PANEL sodium 139 mmol/ L 135-14 6 normal Not Available [address], [address], 03/30/2024 12:22:53 03/27/20 24 03/30/2024 BASIC METAB OLIC PANEL potassium 4.6 mmol/ L 3.5-5. 3 normal Not Available [address], [address], 03/30/2024 12:22:53 03/27/20 24 03/30/2024 BASIC METAB OLIC PANEL chloride 102 mmol/ L 98-110 normal Not Available [address], [address], 03/30/2024 12:22:53 03/27/20 24 03/30/2024 BASIC METAB OLIC PANEL carbon dioxide 31 mmol/ L 20-32 normal Not Available [address], [address], 03/30/2024 12:22:53 03/27/20 24 03/30/2024 BASIC METAB OLIC PANEL calcium 8.8 mg/dL 8.6-10 .4 normal Not Available [address], [address], 03/30/2024 12:22:53 03/27/20 24 03/30/2024 HEPAT IC FUNCT ION PANEL protein, total 5.9 g/dL 6.1-8. 1 low Not Available [address], [address], 03/30/2024 12:22:55 03/27/20 24 03/30/2024 HEPAT IC FUNCT ION PANEL albumin 3.3 g/dL 3.6-5. 1 low Not Available [address], [address], 03/30/2024 12:22:55 03/27/20 24 03/30/2024 HEPAT IC FUNCT ION PANEL globulin 2.6 g/dL_ (calc ) 1.9-3. 7 normal Not Available [address], [address], 03/30/2024 12:22:55 03/27/20 24 03/30/2024 HEPAT IC FUNCT ION PANEL albumin/glob ulin ratio 1.3 (calc ) 1.0-2. 5 normal Not Available [address], [address], 03/30/2024 12:22:55 03/27/20 24 03/30/2024 HEPAT IC FUNCT ION PANEL bilirubin, total 0.4 mg/dL 0.2-1. 2 normal Not Available [address], [address], 03/30/2024 12:22:55 03/27/20 24 03/30/2024 HEPAT IC FUNCT ION PANEL bilirubin, direct 0.1 mg/dL < or = 0.2 normal Not Available [address], [address], 03/30/2024 12:22:55 03/27/20 24 03/30/2024 HEPAT IC FUNCT ION PANEL bilirubin, indirect 0.3 mg/dL _(marita c) 0.2-1. 2 normal Not Available [address], [address], 03/30/2024 12:22:55 03/27/20 24 03/30/2024 HEPAT IC FUNCT ION PANEL alkaline phosphatase 97 U/L 37-153 normal Not Available [address] [address] [place], [address], 03/30/2024 12:22:55 03/27/20 24 03/30/2024 HEPAT IC FUNCT ION PANEL AST 24 U/L 10-35 normal Not Available [address], [address], 03/30/2024 12:22:55 03/27/20 24 03/30/2024 HEPAT IC FUNCT ION PANEL ALT 16 U/L 6-29 normal Not Available [address] [place], [address], 03/30/2024 12:22:55 03/27/20 24 03/30/2024 CBC (INCL UDES DIFF/ PLT) white blood cell count 4.7 thous and/u L 3.8-10 .8 normal Not Available [employer] [address], [address], 03/30/2024 12:22:56 03/27/20 24 03/30/2024 CBC (INCL UDES DIFF/ PLT) red blood cell count 2.85 kenney on/uL 3.80-5 .10 low Not Available [employer] [facility] [address], [address], 03/30/2024 12:22:56 03/27/20 24 03/30/2024 CBC (INCL UDES DIFF/ PLT) hemoglobin 9.6 g/dL 11.7-1 5.5 low Not Available [employer] [address], [address], 03/30/2024 12:22:56 03/27/20 24 03/30/2024 CBC (INCL UDES DIFF/ PLT) hematocrit 29.9 % 35.0-4 5.0 low Not Available [employer] [address], [address], 03/30/2024 12:22:56 03/27/20 24 03/30/2024 CBC (INCL UDES DIFF/ PLT) MCV 104.9 fL 80.0-1 00.0 high Not Available [employer] [address], [address], 03/30/2024 12:22:56 03/27/20 24 03/30/2024 CBC (INCL UDES DIFF/ PLT) MCH 33.7 pg 27.0-3 3.0 high Not Available [employer] [address], [address], 03/30/2024 12:22:56 03/27/20 24 03/30/2024 CBC (INCL UDES DIFF/ PLT) MCHC 32.1 g/dL 32.0-3 6.0 normal Not Available [address], [address], 03/30/2024 12:22:56 03/27/20 24 03/30/2024 CBC (INCL UDES DIFF/ PLT) RDW 13.0 % 11.0-1 5.0 normal Not Available [address], [address], 03/30/2024 12:22:56 03/27/20 24 03/30/2024 CBC (INCL UDES DIFF/ PLT) platelet count 257 thous and/u L 140-40 0 normal Not Available [address], [address], 03/30/2024 12:22:56 03/27/20 24 03/30/2024 CBC (INCL UDES DIFF/ PLT) MPV 9.9 fL 7.5-12 .5 normal Not Available [address], [address], 03/30/2024 12:22:56 03/27/20 24 03/30/2024 CBC (INCL UDES DIFF/ PLT) absolute neutrophils 2740 cells /uL 1500-7 800 normal Not Available [address], [address], 03/30/2024 12:22:56 03/27/20 24 03/30/2024 CBC (INCL UDES DIFF/ PLT) absolute lymphocytes 1419 cells /uL 850-39 00 normal Not Available [address], [address], 03/30/2024 12:22:56 03/27/20 24 03/30/2024 CBC (INCL UDES DIFF/ PLT) absolute monocytes 409 cells /uL 200-95 0 normal Not Available [address], [address], 03/30/2024 12:22:56 03/27/20 24 03/30/2024 CBC (INCL UDES DIFF/ PLT) absolute eosinophils 89 cells /uL 15-500 normal Not Available [facility] [address], [address], 03/30/2024 12:22:56 03/27/20 24 03/30/2024 CBC (INCL UDES DIFF/ PLT) absolute basophils 42 cells /uL 0-200 normal Not Available [facility] [address], [address], 03/30/2024 12:22:56 03/27/20 24 03/30/2024 CBC (INCL UDES DIFF/ PLT) neutrophils 58.3 % normal Not Available [facility] [address], [address], 03/30/2024 12:22:56 03/27/20 24 03/30/2024 CBC (INCL UDES DIFF/ PLT) lymphocytes 30.2 % normal Not Available [facility] [address], [address], 03/30/2024 12:22:56 03/27/20 24 03/30/2024 CBC (INCL UDES DIFF/ PLT) monocytes 8.7 % normal Not Available [facility] [address], [address], 03/30/2024 12:22:56 03/27/20 24 03/30/2024 CBC (INCL UDES DIFF/ PLT) eosinophils 1.9 % normal Not Available [facility] [address], [address], 03/30/2024 12:22:56 03/27/20 24 03/30/2024 CBC (INCL UDES DIFF/ PLT) basophils 0.9 % normal Not Available [facility] [address], [address], 03/30/2024 12:22:56 03/27/20 24 03/30/2024 TSH TSH 2.32 mIU/L 0.40-4 .50 normal Not Available [facility] [address] [place], [address], 03/30/2024 12:22:56 03/27/20 24 03/30/2024 B TYPE NATRI URETI C PEPTI DE (BNP) B type natriuretic peptide (BNP) 532 pg/mL <100 high BNP level s incre ase with age in the gener al popul ation with the highe st value s seen in indiv idual s great er than 75 years of age. Refer ence: J. Am. Kimberly. Cardi ol. 2002; 40:97 6-982 . Not Available [facility] [address] [place], [address], 03/30/2024 12:22:58 03/27/20 24 03/30/2024 COPPE R copper 139 mcg/d L 70-175 This test was devel oped and its stuart tical perfo rmanc e mallory cteri stics have been deter mined by [facility]. It has not been clear ed or appro hannah by the FDA. This assay has been valid ated pursu ant to the CLIA regul ation s and is used for clini marita purpo ses. Not Available [facility] [address] [place], [address], 03/30/2024 12:22:58 05/05/20 24 05/05/2024 COMPR EHENS WALTER METAB OLIC PANEL sodium 124 mmol/ L 134-14 4 low Not Available [facility] (Lab) [address] [place], [address], 05/05/2024 20:35:51 05/05/20 24 05/05/2024 COMPR EHENS WALTER METAB OLIC PANEL potassium 4.0 mmol/ L 3.5-5. 2 Not Available [facility] ([facility]) [address] [place], [address], 05/05/2024 20:35:51 05/05/20 24 05/05/2024 COMPR EHENS WALTER METAB OLIC PANEL chloride 79 mmol/ L 96-106 low Not Available [facility] (Lab) [address] [place], [address], 05/05/2024 20:35:51 05/05/20 24 05/05/2024 COMPR EHENS WALTER METAB OLIC PANEL carbon dioxide 31 mmol/ L 20-29 high Not Available [facility] ([facility]) [address] [place], [address], 05/05/2024 20:35:51 05/05/20 24 05/05/2024 COMPR EHENS WALTER METAB OLIC PANEL anion gap 18.0 mmol/ L Not Available [facility] (Lab) [address] [place], [address], 05/05/2024 20:35:51 05/05/20 24 05/05/2024 COMPR EHENS WALTER METAB OLIC PANEL blood urea nitrogen 8 mg/dL 8-27 normal Not Available [facility] ([facility]) [address] [place], [address], 05/05/2024 20:35:51 05/05/20 24 05/05/2024 COMPR EHENS WALTER METAB OLIC PANEL creatinine 0.59 mg/dL 0.76-1 .27 low Not Available [facility] ([facility]) [address] [place], [address], 05/05/2024 20:35:51 05/05/20 24 05/05/2024 COMPR EHENS WALTER METAB OLIC PANEL glomerular filtration rate 99 mL/mi n/1 Not Available [facility] (Lab) [address] [place], [address], 05/05/2024 20:35:51 05/05/20 24 05/05/2024 COMPR EHENS WALTER METAB OLIC PANEL BUN creatinine ratio 14 10-28 normal Not Available [facility] (Lab) [address] [place], [address], 05/05/2024 20:35:51 05/05/20 24 05/05/2024 COMPR EHENS WALTER METAB OLIC PANEL glucose 108 mg/dL 70-99 high Not Available [facility] (Lab) [address] [facility], [place], [address], 05/05/2024 20:35:51 05/05/20 24 05/05/2024 COMPR EHENS WALTER METAB OLIC PANEL osmolality calculated 249 280-30 1 low Not Available [facility] (Lab) [address] [place], [address], 05/05/2024 20:35:51 05/05/20 24 05/05/2024 COMPR EHENS WALTER METAB OLIC PANEL calcium 11.0 mg/dL 8.7-10 .3 high Not Available [facility] (Lab) [address] [facility], [place], [address], 05/05/2024 20:35:51 05/05/20 24 05/05/2024 COMPR EHENS WALTER METAB OLIC PANEL bilirubin total 0.3 mg/dL 0.0-1. 2 normal Not Available [facility] (Lab) [address] [facility], [place], [address], 05/05/2024 20:35:51 05/05/20 24 05/05/2024 COMPR EHENS WALTER METAB OLIC PANEL aspartate amino transferase 24 IU/L 0-40 normal Not Available [facility] (Lab) [address] [place], [address], 05/05/2024 20:35:51 05/05/20 24 05/05/2024 COMPR EHENS WALTER METAB OLIC PANEL alanine aminotransfe rase 14 IU/L 0-32 normal Not Available [facility] (Lab) [address] [place], [address], 05/05/2024 20:35:51 05/05/20 24 05/05/2024 COMPR EHENS WALTER METAB OLIC PANEL total protein 7.9 g/dL 6.0-8. 5 normal Not Available [facility] (Lab) [address] [place], [address], 05/05/2024 20:35:51 05/05/20 24 05/05/2024 COMPR EHENS WALTER METAB OLIC PANEL albumin level 4.4 g/dL 3.8-4. 8 normal Not Available [facility] (Lab) [address] [place], [address], 05/05/2024 20:35:51 05/05/20 24 05/05/2024 COMPR EHENS WALTER METAB OLIC PANEL globulin 3.5 g/dL 1.5-4. 5 normal Not Available [facility] (Lab) [address], [place], [address], 05/05/2024 20:35:51 05/05/20 24 05/05/2024 COMPR EHENS WALTER METAB OLIC PANEL albumin globulin ratio 1.3 1.2-2. 2 normal Not Available [facility] (Lab) [address] [place], [address], 05/05/2024 20:35:51 05/05/20 24 05/05/2024 COMPR EHENS WALTER METAB OLIC PANEL alkaline phosphatase 175 IU/L 44-121 high Not Available [facility] (Lab) [address] [place], [address], 05/05/2024 20:35:51 05/05/20 24 05/05/2024 COMPL ETE BLOOD COUNT AUTO DIFF white blood count 9.4 x10e3 /uL 3.4-10 .8 normal Not Available [facility] (Lab) [address] [place], [address], 05/05/2024 20:51:31 05/05/20 24 05/05/2024 COMPL ETE BLOOD COUNT AUTO DIFF red blood count 4.58 x10e6 /uL 3.77-5 .28 normal Not Available [facility] (Lab) [address], [place], [address], 05/05/2024 20:51:31 05/05/20 24 05/05/2024 COMPL ETE BLOOD COUNT AUTO DIFF hemoglobin 14.6 g/dL 11.1-1 5.9 normal Not Available [facility] (Lab) [address], [place], [address], 05/05/2024 20:51:31 05/05/20 24 05/05/2024 COMPL ETE BLOOD COUNT AUTO DIFF hematocrit 41.6 % 34.0-4 6.6 normal Not Available [facility] (Lab) [address], [place], [address], 05/05/2024 20:51:31 05/05/20 24 05/05/2024 COMPL ETE BLOOD COUNT AUTO DIFF mean corpuscular volume 91 fL 79-97 normal Not Available [facility] (Lab) [address], [place], [address], 05/05/2024 20:51:31 05/05/20 24 05/05/2024 COMPL ETE BLOOD COUNT AUTO DIFF mean corpuscular hemoglobin 31.9 pg 26.6-3 3.0 normal Not Available [facility] (Lab) [address], [place], [address], 05/05/2024 20:51:31 05/05/20 24 05/05/2024 COMPL ETE BLOOD COUNT AUTO DIFF mean corpuscular HGB conc 35.1 g/dL 31.5-3 5.7 normal Not Available [facility] (Lab) [address] [place], [address], 05/05/2024 20:51:31 05/05/20 24 05/05/2024 COMPL ETE BLOOD COUNT AUTO DIFF red cell distribution width 11.6 % 11.5-1 4.5 normal Not Available [facility] (Lab) [address] [place], [address], 05/05/2024 20:51:31 05/05/20 24 05/05/2024 COMPL ETE BLOOD COUNT AUTO DIFF platelet count 413 x10e3 /uL 150-45 0 normal Not Available [facility] (Lab) [address], [place], [address], 05/05/2024 20:51:31 05/05/20 24 05/05/2024 COMPL ETE BLOOD COUNT AUTO DIFF mean platelet volume 9.7 fL 8.9-12 .7 normal Not Available [facility] (Lab) [address] [facility], [place], [address], 05/05/2024 20:51:31 05/05/20 24 05/05/2024 COMPL ETE BLOOD COUNT AUTO DIFF immature granulocytes pct auto 0.3 % not estb. Not Available [facility] (Lab) [address] [facility], [place], [address], 05/05/2024 20:51:31 05/05/20 24 05/05/2024 COMPL ETE BLOOD COUNT AUTO DIFF neutrophils percent auto 68 % not estb. Not Available [facility] (Lab) [address] [place], [address], 05/05/2024 20:51:31 05/05/20 24 05/05/2024 COMPL ETE BLOOD COUNT AUTO DIFF lymphocytes percent auto 25 % not estb. Not Available [facility] (Lab) [address] [facility], [place], [address], 05/05/2024 20:51:31 05/05/20 24 05/05/2024 COMPL ETE BLOOD COUNT AUTO DIFF monocytes percent auto 6 % not estb. Not Available [facility] (Lab) [address] [place], [address], 05/05/2024 20:51:31 05/05/20 24 05/05/2024 COMPL ETE BLOOD COUNT AUTO DIFF eosinophils percent auto 0 % not estb. Not Available [facility] (Lab) [address] [facility], [place], [address], 05/05/2024 20:51:31 05/05/20 24 05/05/2024 COMPL ETE BLOOD COUNT AUTO DIFF basophils percent auto 0 % not estb. Not Available [facility] (Lab) [address] [place], [address], 05/05/2024 20:51:31 05/05/20 24 05/05/2024 COMPL ETE BLOOD COUNT AUTO DIFF neutrophils absolute auto 6.4 x10e3 /uL 1.4-7. 0 normal Not Available [facility] (Lab) [address] [place], [address], 05/05/2024 20:51:31 05/05/20 24 05/05/2024 COMPL ETE BLOOD COUNT AUTO DIFF immature granulocytes abs auto 0.0 x10e3 /uL 0.0-0. 1 normal Not Available [facility] (Lab) [address] [place], [address], 05/05/2024 20:51:31 05/05/20 24 05/05/2024 COMPL ETE BLOOD COUNT AUTO DIFF lymphocytes absolute auto 2.4 x10e3 /uL 0.7-3. 1 normal Not Available [facility] (Lab) [address] [place], [address], 05/05/2024 20:51:31 05/05/20 24 05/05/2024 COMPL ETE BLOOD COUNT AUTO DIFF monocytes absolute auto 0.6 x10e3 /uL 0.1-0. 9 normal Not Available [facility] (Lab) [address] [place], [address], 05/05/2024 20:51:31 05/05/20 24 05/05/2024 COMPL ETE BLOOD COUNT AUTO DIFF eosinophils absolute auto 0.0 x10e3 /uL 0.0-0. 4 normal Not Available [facility] (Lab) [address] [place], [address], 05/05/2024 20:51:31 05/05/20 24 05/05/2024 COMPL ETE BLOOD COUNT AUTO DIFF basophils absolute auto 0.0 x10e3 /uL 0.0-0. 2 normal Not Available [facility] (Lab) [address] [place], [address], 05/05/2024 20:51:31 05/05/20 24 05/05/2024 COMPL ETE BLOOD COUNT AUTO DIFF nucleated red blood cells auto 0 % 0-0 normal Not Available [facility] (Lab) [address] [place], [address], 05/05/2024 20:51:31 05/05/20 24 05/05/2024 PROTH ROMBI N TIME INR prothrombin time 9.4 secon ds 9.1-12 .0 normal Not Available [facility] (Lab) [address] [facility], [place], [address], 05/05/2024 21:22:54 05/05/20 24 05/05/2024 PROTH ROMBI N TIME INR INR 0.9 0.9-1. 2 normal Not Available [facility] (Lab) [address] [facility], [place], [address], 05/05/2024 21:22:54 05/05/20 24 05/07/2024 AFP, SERUM , TUMOR MARKE R AFP, serum, tumor marker 5.0 NG/mL 0.0-9. 2 Nellie Diagn ostic s Elect nellie milum inesc ence Immun oassa y (ECLI A) Value s obtai mal with diffe rent assay metho ds or kits canno t be used inter vázquez eably . Resul ts canno t be inter prete d as absol pit river evide nce of the prese nce or absen ce of liam menjivar se. This test is not inter preta ble in pregn ant femal es. Not Available [facility] (Lab) [address] [facility], [place], [address], 05/07/2024 08:16:15 05/05/20 24 05/07/2024 TEE TIN ferritin 166 NG/mL 15-150 abnormal Perfo rmed at: 01 - Labco rp [facility] [address] [facility], [place] [address] [facility] Lab Direc tor: Ha le PhD, Phone : [phone] Not Available [facility] (Lab) [address] [place], [address], 05/07/2024 08:16:16 05/05/20 24 05/07/2024 IRON iron 68 ug/dL 27-139 Not Available [facility] (Lab) [address] [place], [address], 05/07/2024 08:16:16 03/29/20 25 03/29/2025 PLATE LET COUNT platelet count 317 x10'3 /uL 130-40 0 Not Available [facility] (Lab) [place], [address], 03/29/2025 08:58:35 03/29/20 25 03/29/2025 PLATE LET COUNT MPV 8.4 fL 9.3-12 .2 low Not Available [facility] (Lab) [place], [address], 03/29/2025 08:58:35 03/29/20 25 03/29/2025 PROTI ME protime 10.3 sec 10.2-1 2.9 Not Available [facility] (Lab) [place], [address], 03/29/2025 09:31:45 03/29/20 25 03/29/2025 PROTI ME INR 0.9 Recom sherine d INR Thera peuti c Goals : 2.0-3 .0 Routi ne Thera py 2.5-3 .5 Mecha nical Prost hetic Valve s (High Risk) Not Available [facility] (Lab) [place], [address], 03/29/2025 09:31:45 03/29/20 25 03/29/2025 PTT PTT 29.5 sec 25.1-3 6.5 Not Available [facility] (Lab) [address], [place], [address], 03/29/2025 09:31:48 03/29/20 25 03/29/2025 Plate lets [#/vo lume] in Blood platelets [#/volume] in blood 317 text: 130 - 400 x10'3/ uL Not Available Not Available 03/30/2025 21:39:52 03/29/20 25 03/29/2025 Plate lets [#/vo lume] in Blood platelet [entitic mean volume] in blood 8.4 text: 9.3 - 12.2 fL low Not Available Not Available 03/30/2025 21:39:52 03/29/20 25 03/29/2025 Plate lets [#/vo lume] in Blood interpretati on and review of laboratory results Abnorm al Not Available Not Available 21:39:52 03/29/20 25 03/29/2025 aPTT in Plate let poor plasm a by Coagu latio n assay APTT in platelet poor plasma by coagulation assay 29.5 text: 25.1 - 36.5 sec Not Available Not Available 03/30/2025 21:39:52 03/29/20 25 03/29/2025 Proth rombi n time (PT) prothrombin time (PT) 10.3 text: 10.2 - 12.9 sec Not Available Not Available 03/30/2025 21:39:51 03/29/20 25 03/29/2025 Proth rombi n time (PT) INR in platelet poor plasma by coagulation assay 0.9 Recom sherine d INR Thera peuti c Goals : 2.0-3 .0 Routi ne Thera py 2.5-3 .5 Mecha nical Prost hetic Valve s (High Risk) Not Available Not Available 03/30/2025 21:39:51 05/19/20 25 05/20/2025 aPTT in Plate let poor plasm a by Coagu latio n assay APTT in platelet poor plasma by coagulation assay 26 text: 24 - 33 sec THIS TEST HAS NOT BEEN VALID ATED FOR MONIT ORING UNFRA CTION ATED HEPAR IN THERA PY. APTT- BASED THERA PEUTI C RANGE S FOR UNFRA CTION ATED HEPAR IN THERA PY HAVE NOT BEEN ESTAB MYKEL KOENIG GENER AL GUIDE LINES ON HEPAR IN MONIT ORING , REFER TO THE LABCO RP DIREC TORY OF HAYLIE BYERS. Not Available Not Available 05/24/2025 17:22:19 05/19/20 25 05/20/2025 aPTT in Plate let poor plasm a by Coagu latio n assay Unknown Analyte TESTIN G PERFOR MED AT: [] [facility] , [address] [facility] [facility], [place], [address], PHONE: , JORGE SEVERODex DIRECT OR: ELIZABETH ENRIQUE, PHD Releas e to patien t->Imm ediate Not Available Not Available 17:22:19 05/19/20 25 05/19/2025 CBC W Auto Diffe renti al panel - Blood leukocytes [#/volume] in blood by automated count 7.4 10*3/ uL low: 410*3/ uLhigh : 1010*3 /uL Not Available Not Available 05/24/2025 17:22:19 05/19/20 25 05/19/2025 CBC W Auto Diffe renti al panel - Blood hemoglobin [mass/volume ] in blood 12 g/dL low: 11.2g/ dLhigh : 15.7g/ dL Not Available Not Available 05/24/2025 17:22:19 05/19/2005/19/2025 CBC W Auto Diffe renti al panel - Blood hematocrit [volume fraction] of blood by automated count 35 % low: 34.1%h igh: 44.9% Not Available Not Available 05/24/2025 17:22:19 05/19/20 25 05/19/2025 CBC W Auto Diffe renti al panel - Blood platelets [#/volume] in blood by automated count 263 10*3/ uL low: 44052* 3/uLhi gh: 80300* 3/uL Not Available Not Available 05/24/2025 17:22:19 05/19/20 25 05/19/2025 CBC W Auto Diffe renti al panel - Blood platelet [entitic mean volume] in blood by automated count 8.3 fL low: 9.4fLh igh: 12.4fL low Not Available Not Available 05/24/2025 17:22:19 05/19/20 25 05/19/2025 CBC W Auto Diffe renti al panel - Blood erythrocytes [#/volume] in blood by automated count 3.86 10*6/ uL low: 3.9310 *6/uLh igh: 5.2210 *6/uL low Not Available Not Available 05/24/2025 17:22:19 05/19/20 25 05/19/2025 CBC W Auto Diffe renti al panel - Blood MCV [entitic mean volume] in red blood cells by automated count 91 fL low: 79fLhi gh: 95fL Not Available Not Available 05/24/2025 17:22:19 05/19/20 25 05/19/2025 CBC W Auto Diffe renti al panel - Blood MCH [entitic mass] by automated count 31.1 pg low: 25.6pg high: 32.2pg Not Available Not Available 05/24/2025 17:22:19 05/19/20 25 05/19/2025 CBC W Auto Diffe renti al panel - Blood MCHC [entitic mass/volume] in red blood cells by automated count 34.3 g/dL low: 32.2g/ dLhigh : 36.5g/ dL Not Available Not Available 05/24/2025 17:22:19 05/19/20 25 05/19/2025 CBC W Auto Diffe renti al panel - Blood erythrocyte [distwidth] in red blood cells by automated count 11.7 % low: 11.6%h igh: 14.4% Not Available Not Available 05/24/2025 17:22:19 05/19/20 25 05/19/2025 CBC W Auto Diffe renti al panel - Blood neutrophils/ leukocytes in blood by automated count 59.1 % low: 36%hig h: 66% Not Available Not Available 05/24/2025 17:22:19 05/19/20 25 05/19/2025 CBC W Auto Diffe renti al panel - Blood lymphocytes/ leukocytes in blood by automated count 31.4 % low: 19%hig h: 40% Not Available Not Available 05/24/2025 17:22:19 05/19/20 25 05/19/2025 CBC W Auto Diffe renti al panel - Blood monocytes/le ukocytes in blood by automated count 6.9 % low: 4.1%hi gh: 12.1% Not Available Not Available 05/24/2025 17:22:19 05/19/20 25 05/19/2025 CBC W Auto Diffe renti al panel - Blood eosinophils/ leukocytes in blood by automated count 1.5 % low: 0%high : 3.5% Not Available Not Available 05/24/2025 17:22:19 05/19/20 25 05/19/2025 CBC W Auto Diffe renti al panel - Blood basophils/le ukocytes in blood by automated count 0.8 % low: 0%high : 1% Not Available Not Available 05/24/2025 17:22:19 05/19/20 25 05/19/2025 CBC W Auto Diffe renti al panel - Blood neutrophils [#/volume] in blood by automated count 4.4 10*3/ uL low: 1.410* 3/uLhi gh: 6.610* 3/uL Not Available Not Available 05/24/2025 17:22:19 05/19/20 25 05/19/2025 CBC W Auto Diffe renti al panel - Blood lymphocytes [#/volume] in blood by automated count 2.3 10*3/ uL low: 0.810* 3/uLhi gh: 410*3/ uL Not Available Not Available 05/24/2025 17:22:19 05/19/20 25 05/19/2025 CBC W Auto Diffe renti al panel - Blood monocytes [#/volume] in blood by automated count 0.5 10*3/ uL low: 0.210* 3/uLhi gh: 1.210* 3/uL Not Available Not Available 05/24/2025 17:22:19 05/19/20 25 05/19/2025 CBC W Auto Diffe renti al panel - Blood eosinophils [#/volume] in blood by automated count 0.1 10*3/ uL low: 010*3/ uLhigh : 0.410* 3/uL Not Available Not Available 05/24/2025 17:22:19 05/19/20 25 05/19/2025 CBC W Auto Diffe renti al panel - Blood basophils [#/volume] in blood by automated count 0.1 10*3/ uL low: 010*3/ uLhigh : 0.110* 3/uL Not Available Not Available 05/24/2025 17:22:19 05/19/20 25 05/19/2025 CBC W Auto Diffe renti al panel - Blood interpretati on and review of laboratory results Abnorm al Not Available Not Available 17:22:19 05/19/20 25 05/19/2025 Compr ehens walter metab olic 1999 panel - Serum or Plasm a glucose [mass/volume ] in serum or plasma 123 mg/dL low: 70mg/d Lhigh: 105mg/ dL high Not Available Not Available 05/24/2025 17:22:19 05/19/20 25 05/19/2025 Compr ehens walter metab olic 2000 panel - Serum or Plasm a urea nitrogen [mass/volume ] in serum or plasma 10 mg/dL low: 7mg/dL high: 25mg/d L Not Available Not Available 05/24/2025 17:22:19 05/19/20 25 05/19/2025 Compr ehens walter metab olic 2000 panel - Serum or Plasm a creatinine [mass/volume ] in serum or plasma 1 mg/dL low: 0.6mg/ dLhigh : 1.2mg/ dL Not Available Not Available 05/24/2025 17:22:19 05/19/20 25 05/19/2025 Compr ehens walter metab olic 2000 panel - Serum or Plasm a sodium [moles/volum e] in serum or plasma 125 text: 136 - 145 mEq/L low Not Available Not Available 05/24/2025 17:22:19 05/19/20 25 05/19/2025 Compr ehens walter metab olic 2000 panel - Serum or Plasm a potassium [moles/volum e] in serum or plasma 3.2 text: 3.5 - 5.1 mEq/L low Not Available Not Available 05/24/2025 17:22:19 05/19/20 25 05/19/2025 Compr ehens walter Flig[facility] olic 2000 panel - Serum or Plasm a chloride [moles/volum e] in serum or plasma 85 text: 98 - 107 mEq/L low Not Available Not Available 05/24/2025 17:22:19 05/19/20 25 05/19/2025 [facility] panel - Serum or Plasm a bicarbonate [moles/volum e] in serum or plasma 29 text: 21 - 31 mEq/L Not Available Not Available 05/24/2025 17:22:19 05/19/20 25 05/19/2025 [facility] 1999 panel - Serum or Plasm a bilirubin.to patricia [mass/volume ] in serum or plasma 0.3 mg/dL low: 0.3mg/ dLhigh : 1mg/dL Not Available Not Available 05/24/2025 17:22:19 05/19/20 25 05/19/2025 [facility] 1999 panel - Serum or Plasm a alkaline phosphatase [enzymatic activity/vol ume] in serum or plasma 91 U/L low: 34U/Lh igh: 104U/L Not Available Not Available 05/24/2025 17:22:19 05/19/20 25 05/19/2025 [facility] 1999 panel - Serum or Plasm a aspartate aminotransfe rase [enzymatic activity/vol ume] in serum or plasma 15 U/L low: 13U/Lh igh: 39U/L Not Available Not Available 05/24/2025 17:22:19 05/19/20 25 05/19/2025 [facility] 1999 panel - Serum or Plasm a alanine aminotransfe rase [enzymatic activity/vol ume] in serum or plasma 11 U/L low: 7U/Lhi gh: 52U/L Not Available Not Available 05/24/2025 17:22:19 05/19/20 25 05/19/2025 [facility] 1999 panel - Serum or Plasm a protein [mass/volume ] in serum or plasma 6.7 g/dL low: 6.4g/d Lhigh: 8.9g/d L Not Available Not Available 05/24/2025 17:22:19 05/19/20 25 05/19/2025 [facility] 1999 panel - Serum or Plasm a albumin [mass/volume ] in serum or plasma by bromocresol green (bcg) dye binding method 4.1 g/dL low: 3.5g/d Lhigh: 5.7g/d L Not Available Not Available 05/24/2025 17:22:19 05/19/20 25 05/19/2025 [facility] 1999 panel - Serum or Plasm a calcium [mass/volume ] in serum or plasma 8.9 mg/dL low: 8.6mg/ dLhigh : 10.3mg /dL Not Available Not Available 05/24/2025 17:22:19 05/19/20 25 05/19/2025 Compr Chain [facility] 1999 panel - Serum or Plasm a anion gap in serum or plasma by calculated.4 ions 14.2 text: 7.0 - 15.0 mEq/L Not Available Not Available 05/24/2025 17:22:19 05/19/20 25 05/19/2025 [facility] 1999 panel - Serum or Plasm a globulin [mass/volume ] in serum by calculation 2.6 g/dL low: 2g/dLh igh: 3.5g/d L Not Available Not Available 05/24/2025 17:22:19 05/19/20 25 05/19/2025 [facility] 1999 panel - Serum or Plasm a eGFR 61 text: >60 mL/min /1.73m 2 This eGFR is calcu lated using 2020 CKD-E PI Creat inine equat ion witho ut race modif ier based on the NKF-A SN task force recom menda tions Equat ion: eGFR= 142*m in(SC r/k,1 )a*ma x(SCr /k,1) -1.20 0*0.9 938Ag e*1.0 12 (if femal e), where SCr is serum creat inine , k is 0.7 for femal es and 0.9 for males , and a is -0.24 1 for femal es and -0.30 2 for males Not Available Not Available 05/24/2025 17:22:19 05/19/20 25 05/19/2025 Compr ehens walter metab olic 1999 panel - Serum or Plasm a Unknown Analyte Releas e to patien t->Imm ediate IS THE PATIEN T REQUIR ED TO BE FASTIN G FOR 8 HOURS? ->No Not Available Not Available 17:22:19 05/19/20 25 05/19/2025 Compr ehens walter metab olic 2000 panel - Serum or Plasm a interpretati on and review of laboratory results Abnorm al Not Available Not Available 17:22:19 01/18/20 24 01/17/2024 CT, abdom en + pelvi s, w/o contr ast No observ ation record ed. [email or web address] [facility] [address] [place], [address], 01/21/2024 14:32:33 04/07/20 24 02/26/2024 US, echoc ardio gram No observ ation record ed. [email or web address] [place] [address] [place], [address], 04/07/2024 19:10:40 04/17/20 24 04/17/2024 XR, cervi marita spine , 2 or 3 view No observ ation record ed. [facility] ([facility]) [address] [place] [address] [place], [address], 04/21/2024 07:39:58 04/17/20 24 04/17/2024 XR, hip, unila teral , 2 or 3 view No observ ation record ed. [facility] ([facility]) [address] [place] [address] [place], [address], 04/22/2024 17:44:38 04/17/20 24 04/17/2024 XR, knee No observ ation record ed. [email or web address] [place], [address], 04/21/2024 07:40:52 04/17/20 24 04/17/2024 XR, cervi marita spine , 2 or 3 view No observ ation record ed. [facility] ([facility]) [address] [place] [address] Dr, [place], [address], 04/21/2024 07:41:09 09/11/20 24 xr knee RT 2V [facility] [place] [address] [facility] [address] [place] [id number] Proced ure(s) : XR KNEE RT 2V Date of servic e: 2023 12:51 PM Provid ed clinic al inform ation: 68 years, Female , pain in right knee Proced ure and materi als: 2 views right knee. Compar michaelle studie s: None. Observ ations : Mild medial compar tment narrow ing is presen t. No fractu re, disloc ation or acute bony abnorm ality. No signif icant knee effusi on. No lytic or sclero tic change s. IMPRES LEW: No acute bony abnorm ality. Mild medial compar tment narrow ing. Referr ed By: Rafaela onical ly Signed By: Michael cunningham MD on 2023 8:23 AM Interp reted By: Michael cunningham MD, 2023 8:23 AM [address], [address], 09/11/2024 15:04:21 09/11/20 24 09/07/2024 XR, knee, 3 view No observ ation record ed. [address], [address], 09/14/2024 17:30:35 12/24/19 25 XR, wrist , 3 or more view [facility] [place] [address] [facility] [address] [facility] [address] Examin ation: XR WRIST RT MIN 3V Exam time: 3:19 PM Indica tion: Right wrist pain. Fall. Compar michaelle: None availa ble. Techni que: 3 views of the right hand, 3 images . Findin gs: No eviden ce of fractu re or disloc ation. There is severe osteoa rthrit is of the base of the first CMC joint. There is a small erosio n of the proxim al lunate , nonspe cific and could repres ent sequel ae of inflam matory arthri tis. No other findin gs sugges tive of inflam matory arthro garfield. There is a subtle rounde d lucenc y involv ing the distal ulnar metaph ysis and a osseou s lesion is not exclud ed. IMPRES LEW: 1. No acute osseou s abnorm ality. 2. Findin gs sugges tive of a small erosio n of the proxim al lunate which could be sugges tive of inflam matory arthro garfield. 3. Rounde d lucenc y in the distal ulnar metaph ysis, favore d to be projec tional artifa ct though an ill-de fined lytic cannot be entire ly exclud ed. MRI could be obtain ed to furthe r assess these abnorm alitie s. Ordere d By: DIVYA BUENROSTRO [facility] onical ly Signed By: Cristian jay MD on 4:23 PM Interp reted By: Cristian jay MD, 4:21 PM [facility] [place] [address], [address], 12/25/2024 11:37:58 01/18/20 25 MRI, wrist , w/wo contr ast [facility] [address] [facility] [address] [place] [address] [facility] [place] [address] [facility] [facility] [address] [place] [address] EXAMIN ATION: MRI RIGHT HAND WITH AND WITHOU T CONTRA ST ACCESS ION: [id number] EXAM DATE: 3/15/2 025 12:35 PM REASON FOR EXAM: Hand injury and pain and swelli ng COMPAR MICHAELLE: None TECHNI QUE: Multip lanar multis equenc e imagin g of the hand before and after inject ion of 11 mL Dotare m. FINDIN GS: Dorsal soft tissue swelli ng of the subcut aneous tissue s withou t signif icant and enhanc ement. 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 Indete rminat e, but suspic ious for metast atic diseas e or myelom a. 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 Distal radiou lnar joint effusi on. This extend s proxim al to the field- of-vie w and is suspic ious for metast asis or myelom a. Subtle additi onal lesion s suspec omayra in the second metaca rpal neck, fourth metaca rpal neck, lunate , trique trum. Small midcar pal joint effusi on. Underl griselda synovi tis is a concer n as well. Trapez iometa carpal joint effusi on as well. No defini te acute fractu re. Howeve r a pathol ogic fractu re of the distal ulna is possib le, diffic ult to fully charac terize becaus e of the intens e signal abnorm ality from the underl griselda bone lesion . No defini te ligame nt or tendon injury . 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 Indete rminat e, but suspic ious for metast atic diseas e or myelom a. 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 Distal radiou lnar joint effusi on. This extend s proxim al to the field- of-vie w and is suspic ious for metast asis or myelom a. Subtle additi onal lesion s suspec omayra in the second metaca rpal neck, fourth metaca rpal neck, lunate , trique trum. Small midcar pal joint effusi on. Underl griselda synovi tis is a concer n as well. Trapez iometa carpal joint effusi on as well. No defini te acute fractu re. Howeve r a pathol ogic fractu re of the distal ulna is possib le, diffic ult to fully charac terize becaus e of the intens e signal abnorm ality from the underl griselda bone lesion . Follow -up recomm ended to evalua te for primar y malign irene and/or myelom a. Referr ed By: DIVYA BUENROSTRO Electr onical ly Signed By: Case Del Real MD on 025 7:52 PM Interp reted By: Case Del Real MD, 025 7:42 PM Pt fell last month catchi ng hersel f with her R arm puttin g her weight into it - R hand and wrist made a crunch ing noise - pain and swelli ng - 11ml Dotare m gigi [facility] Patient Access Centralized Scheduling Centralized Scheduling [address] [facility] , [place], [address], 01/19/2025 10:24:08 02/05/20 25 02/04/2025 PET-C T, skull base to mid-t high scan No observ ation record ed. [facility] [address] [place], [address], 02/12/2025 14:09:03 03/10/20 25 02/04/2025 PET-C T, skull base to mid-t high scan No observ ation record ed. [facility] [address] [place], [address], 03/10/2025 18:07:05 04/09/20 25 XR, ribs, unila teral , 2 view [facility] [address] [facility] [place] [address] [facility] Imagin g Center - [facility] [address] [facility] [address] Examin ation: XR RIBS RT UNI Exam time: 04/02/20 25 1:36 PM Clinic al histor y: Trauma , right side pain Compar michaelle: 05/28/20 16 Techni que: AP and obliqu e views of the right ribs Findin gs: There is eviden ce of cardio megaly . Pulmon tommy vascul ature within normal limits . No focal pulmon tommy parenc hymal opacit y. No pleura l effusi on. No eviden ce of pneumo thorax . There are multip le acute appear ing minima lly displa joleen fractu res involv ing right latera l ribs from the right fourth rib to the right ninth rib. No other eviden ce of fractu re is demons trated . Mild thorac olumba r scolio sis. IMPRES LEW: 1) Multip le acute right latera l rib fractu res are noted involv ing probab ly the right fourth throug h the right ninth ribs. No eviden ce of pneumo thorax . 2. Cardio megaly withou t eviden ce of CHF. Ordere d By: DIVYA BUENROSTRO Electr onical ly Signed By: Carmine pleitez MD on 8:12 AM Interp reted By: Carmine pleitez MD, 8:09 AM gigi [facility] [address], [place], [address], 04/13/2025 14:58:13 05/21/20 25 05/21/2025 CT, abdom en + pelvi s, w/ contr ast No observ ation record ed. [facility] [address] [facility] [address], [place], [address], 05/21/2025 16:19:33 Result Notes Documentation Provider Name and Address Organization Details Recorded Time Xr, Wrist, 3 Or More View : [place] [address] [facility] Imaging Center [address] [facility] [address] Examination: XR WRIST RT MIN 3V Exam time: 12/24/2024 3:19 PM Indication: Right wrist pain. Fall. Comparison: None available. Technique: 3 views of the right hand, 3 images. Findings: No evidence of fracture or dislocation. 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 There is a small erosion of the proximal lunate, nonspecific and could represent sequelae of inflammatory arthritis. No other findings suggestive of inflammatory arthropathy. There is a subtle rounded lucency involving the distal ulnar metaphysis and a osseous lesion is not excluded. IMPRESSION: 1. No acute osseous abnormality. 2. Findings suggestive of a small erosion of the proximal lunate which could be suggestive of inflammatory arthropathy. 3. Rounded lucency in the distal ulnar metaphysis, favored to be projectional artifact though an ill-defined lytic cannot be entirely excluded. MRI could be obtained to further assess these abnormalities. Ordered By: DIVYA BUENROSTRO Interpreted By: Cristian Ji MD, 12/24/2024 4:21 PM Not Available [facility] 12/25/2024 11:37:58 Mri, Wrist, W/wo Contrast : [place] [address] [address] EXAMINATION: MRI RIGHT HAND WITH AND WITHOUT CONTRAST EXAM DATE: 01/09/2025 12:35 PM REASON FOR EXAM: Hand injury and pain and swelling COMPARISON: None TECHNIQUE: Multiplanar multisequence imaging of the hand before and after injection of 11 mL Dotarem. FINDINGS: Dorsal soft tissue swelling of the subcutaneous tissues without significant and enhancement. Bone marrow: Mottled appearance with heterogeneous T2 hyperintensity of both the proximal aspect of the first metatarsal bone and the trapezium, associated moderate, heterogeneous enhancement. Indeterminate, but suspicious for metastatic disease or myeloma. Partially imaged ulna demonstrates a mottled appearance with heterogeneous T2 hyperintensity of the bone marrow and heterogeneous enhancement. Distal radioulnar joint effusion. This extends proximal to the yjczs-ks-drhg and is suspicious for metastasis or myeloma. Subtle additional lesions suspected in the second metacarpal neck, fourth metacarpal neck, lunate, triquetrum. Small midcarpal joint effusion. Underlying synovitis is a concern as well. Trapeziometacarpal joint effusion as well. No definite acute fracture. However a pathologic fracture of the distal ulna is possible, difficult to fully characterize because of the intense signal abnormality from the underlying bone lesion. No definite ligament or tendon injury. IMPRESSION: Mottled appearance with heterogeneous T2 hyperintensity of both the proximal aspect of the first metatarsal bone and the trapezium, associated moderate, heterogeneous enhancement. Indeterminate, but suspicious for metastatic disease or myeloma. Partially imaged ulna demonstrates a mottled appearance with heterogeneous T2 hyperintensity of the bone marrow and heterogeneous enhancement. Distal radioulnar joint effusion. This extends proximal to the drebm-yq-byju and is suspicious for metastasis or myeloma. Subtle additional lesions suspected in the second metacarpal neck, fourth metacarpal neck, lunate, triquetrum. Small midcarpal joint effusion. Underlying synovitis is a concern as well. Trapeziometacarpal joint effusion as well. No definite acute fracture. However a pathologic fracture of the distal ulna is possible, difficult to fully characterize because of the intense signal abnormality from the underlying bone lesion. Follow-up recommended to evaluate for primary malignancy and/or myeloma. Referred By: DIVYA BUENROSTRO Interpreted By: Case Del Real MD, 01/17/2025 7:42 PM Pt fell last month catching herself with her R arm putting her weight into it - R hand and wrist made a crunching noise - pain and swelling - 11ml Dotarem Melanie Bustillo RN [facility], [place] - [facility] 01/19/2025 10:24:08 Xr, Ribs, Unilateral, 2 View : [facility] [place] [address] [facility] Imaging Center - [address] [facility] [address] Examination: XR RIBS RT UNI Exam time: 04/02/2025 1:36 PM Clinical history: Trauma, right side pain Comparison: 05/28/2016 Technique: AP and oblique views of the right ribs Findings: There is evidence of cardiomegaly. Pulmonary vasculature within normal limits. No focal pulmonary parenchymal opacity. No pleural effusion. No evidence of pneumothorax. There are multiple acute appearing minimally displaced fractures involving right lateral ribs from the right fourth rib to the right ninth rib. No other evidence of fracture is demonstrated. Mild thoracolumbar scoliosis. IMPRESSION: 1) Multiple acute right lateral rib fractures are noted involving probably the right fourth through the right ninth ribs. No evidence of pneumothorax. 2. Cardiomegaly without evidence of CHF. Ordered By: DIVYA BUENROSTRO Interpreted By: Luis Purvis MD, 04/09/2025 8:09 AM Melanie Bustillo RN [facility], [place] - [facility] 04/13/2025 14:58:14 Problems Name Problem SNOMED Code Status Onset Date Resolution Date Notes Provider Name and Address Organization Details Recorded Time Cobalamin deficiency 704783073 Active 2023 Divya Giraldo DO Attn: Blanca amaro,[address] [place], [address], [facility] - [facility] 4 18:59:24 Generalized anxiety disorder 81702903 Active 2023 Divya Giraldo DO Attn: Blanca amaro,[address] [place], [address], [facility] - [facility] 4 18:59:25 Depressive disorder 13763009 Active 2023 Divya Giraldo DO Attn: Blanca amaro,[address] [place], [address], [facility] - [facility] 4 18:59:28 Spinal stenosis of lumbar region 81625512 Active 2023 Divya Giraldo DO Attn: Blanca amaro,[address] [place], [address], [place] [facility] 4 18:59:29 Chronic insomnia 228219393 Active 2023 Divya Giraldo DO Attn: Accountin g,[address] [facility], [place], [address], [place] [facility] 4 18:59:30 Intermitten t claudicatio n 45815829 Active 2023 Divya Giraldo DO Attn: Accountin g,[address] [facility], [place], [address], [place] [facility] 4 18:59:32 Ex-smoker 1181725 Active 2023 Divya Giraldo DO Attn: Accountin g,[address] [facility], [place], [address], [place] [facility] 4 18:59:32 Hyperlipide dottie 59890581 Active 2023 Divya Giraldo DO Attn: Accountin g,[address] [facility], [place], [address], [place] [facility] 4 18:59:34 Osteoarthri tis 188068283 Active 2023 Divya Giraldo DO Attn: Accountin g,[address] [facility], [place], [address], [place] [facility] 4 18:59:35 Congestive heart failure 49527870 Active 2023 Divya Giraldo DO Attn: Accountin g,[address] [facility], [place], [address], [place] [facility] 4 18:59:37 Gastroesoph ageal reflux disease without esophagitis 079249383 Active 2023 Divya Giraldo DO Attn: Accountin g,[address] [facility], [place], [address], [place] [facility] 4 18:59:38 Idiopathic peripheral neuropathy 11886312 Active 2023 Divya Giraldo DO Attn: Sohailpierre amaro,[address] [facility], [place], [address], [place] [facility] 4 18:59:40 Hypothyroid ism 67056674 Active 2023 Divya Giraldo DO Attn: Sohailpierre amaro,[address] [facility], [place], [address], [place] [facility] 4 18:59:41 Peripheral vascular disease 042813459 Active 2023 Divya Giraldo DO Attn: Sohailpierre amaro,[address] [facility], [place], [address], [place] [facility] 4 18:59:42 Abdominal pain 57642065 Active 2023 Divya Giraldo DO Attn: Sohailpierre amaro,[address] [facility], [place], [address], [place] [facility] 4 11:35:14 Post-discha rge follow-up 104652270 Active 2023 Divya Giraldo DO Attn: Blanca amaro,[address] [facility], [place], [address], [place] [facility] 4 19:12:01 Pain of right knee joint 3864761455644 00 Active 2023 Divya Giraldo DO Attn: Blanca amaro,[address] [facility], [place], [address], [place] [facility] 4 13:05:41 Pain of right wrist 5600805701433 00 Active 2024 Divya Giraldo DO Attn: Blanca amaro,[address] [facility], [place], [address], [place] [facility] 5 12:56:00 Notes:Some problems listed i n Documents: #[id number], #[id number], #[id number], #[id number], #[id number], #[id number], #[id number], #[id number], #[id number], #[id number] could not be added to this patient's chart. Please review these documents and add these problems to the patient's chart manually as needed. Problem Notes None recorded. Medical Equipment None Reported. Allergies Allergen ID Allergen Name Allergen Category Reaction Reaction Severity Criticality Documentation Date Start Date Code Code System Note Provider Name and Address Organization Details Recorded Time 517467 Product containin g penicilli n (product) medicatio n rash Not available [facility] 01/17/20242023 25277 8001 SNOMED LOTUS Angela, [facility] 5 11:50:50 736442 codeine medicatio n nausea other vomiting Not available Not available Not available high 01/17/20242023 2670 RxNorm React ion: NAUSE A, VOMIT ING, unrec ogniz ed react ion (text : Nause a And Vomit ing, code: 88707 000) (from exter [facility] e) LOTUS Angela, [facility] 5 11:50:39 536108 morphine medicatio n hallucina tions hives Not available Not available [facility] 12/25/20242018 7052 RxNorm React ion: HALLU CINAT IONS, Other react ion(s ): Stoma ch/GI Upset LOTUS Angela, [facility] 5 11:50:46 Medications Name Sig Start Date Stop Date Status Note LastModified by Organization Details LastModified Time buspirone 5 mg tablet TAKE 1 TABLET BY MOUTH THREE TIMES A DAY 01/11 completed Not Available Not Available Not Available doxycycline hyclate 100 mg capsule TAKE 1 CAPSULE BY MOUTH TWICE A DAY FOR 7 DAYS 05/05 completed Not Available Not Available Not Available azithromyci n 250 mg tablet TAKE 2 TABLETS BY MOUTH TODAY, THEN TAKE 1 TABLET DAILY FOR 4 DAYS 05/05 completed Not Available Not Available Not Available thiamine HCl (vitamin B1) 100 mg tablet TAKE 1 TABLET BY MOUTH EVERY DAY active Not Available Not Available No t Available metronidazo le 500 mg tablet TAKE 1 TABLET BY MOUTH THREE TIMES A DAY FOR 7 DAYS 05/05 completed Not Available Not Available Not Available amitriptyli ne 50 mg tablet TAKE 1 TABLET BY MOUTH ONCE DAILY active Not Available Not Available No t Available oxycodone 15 mg tablet TAKE 1 TABLET BY MOUTH EVERY 4 HOURS NEEDED FOR PAIN. 05/05 completed Not Available Not Available Not Available alprazolam 0.5 mg tablet TAKE 1 TABLET BY MOUTH THREE TIMES A DAY NEEDED 05/05 completed Not Available Not Available Not Available lorazepam 0.5 mg tablet TAKE 1 TABLET (0.5 MG TOTAL) BY MOUTH EVERY 8 (EIGHT) HOURS NEEDED FOR ANXIETY FOR UP TO 5 DAYS 05/05 completed Not Available Not Available Not Available oxycodone-a cetaminophe n 10 mg-325 mg tablet TAKE 1 TABLET BY MOUTH EVERY 8 HOURS FOR 30 DAYS 05/05 completed Not Available Not Available Not Available amitriptyli ne 10 mg tablet TAKE 1 TABLET BY MOUTH EVERY DAY AT NIGHT 03/27 completed Not Available Not Available Not Available amlodipine 10 mg tablet Take 1 tablet every day by oral route. 2024 active Not Available Not Available Not Avai lable levothyroxi ne 50 mcg tablet TAKE 1 TABLET BY MOUTH EVERY DAY 2024 active Not Available Not Available Not Avai lable cyanocobala min (vit B-12) 1,000 mcg/mL injection solution Inject 1 mL every month by subcutane ous route. 2023 active Not Available Not Available Not Avai lable buspirone 10 mg tablet TAKE 1 TABLET BY MOUTH THREE TIMES DAILY 2024 active Not Available Not Available Not Avai lable gabapentin 300 mg capsule TAKE 1 CAPSULE BY MOUTH THREE TIMES DAILY active Not Available Not Available No t Available triamterene 37.5 mg-hydrochl orothiazide 25 mg tablet TAKE 1 TABLET BY MOUTH ONCE DAILY active Not Available Not Available No t Available folic acid 1 mg tablet Take 1 tablet every day by oral route. 2024 active Not Available Not Available Not Avai lable oxycodone-a cetaminophe n 7.5 mg-325 mg tablet TAKE 1 TABLET BY MOUTH EVERY 6 HOURS active Not Available Not Available No t Available ondansetron 4 mg disintegrat ing tablet take 1 tablet by mouth every 6 hours as needed for nausea and vomiting for up to 10 days 03/17 /2025 completed Not Available Not Available Not Available cefdinir 300 mg capsule TAKE BY MOUTH 2 (TWO) TIMES A DAY FOR 7 DAYS 05/05 completed Not Available Not Available Not Available cholecalcif lucy (vitamin D3) 125 mcg (5,000 unit) capsule TAKE 1 CAPSULE BY MOUTH EVERY DAY active Not Available Not Available No t Available dicyclomine 10 mg capsule TAKE 1 CAPSULE BY MOUTH THREE TIMES DAILY 2024 active Not Available Not Available Not Avai lable Enulose 10 gram/15 mL oral solution TAKE 15 ML BY MOUTH TWICE DAILY NEEDED active Not Available Not Available No t Available oxycodone 5 mg tablet TAKE 1 TABLET BY MOUTH EVERY DAY NEEDED 05/05 completed Not Available Not Available Not Available rosuvastati n 10 mg tablet TAKE 1 TABLET BY MOUTH ONCE DAILY active Not Available Not Available No t Available Klor-Con M20 mEq tablet,exte nded release TAKE 1 TABLET BY MOUTH EVERY DAY active Not Available Not Available No t Available bupropion HCl XL 150 mg 24 hr tablet, extended release TAKE 1 TABLET BY MOUTH ONCE DAILY active Not Available Not Available No t Available eszopiclone 2 mg tablet TAKE 1 TABLET BY MOUTH NEEDED AT BEDTIME active Not Available Not Available No t Available pregabalin 75 mg capsule TAKE 1 CAPSULE BY MOUTH 3 TIMES A DAY. 05/05 completed Not Available Not Available Not Available BD Regular Bevel Kent 21 gauge x 1 USE TO INJECT B12 ONCE A MONTH active Not Available Not Available No t Available Vitals Date Recorded Systolic And Diastolic Provider Name and Address Organization Details Last Updated DateTime 01/11/2025 116/72 mm[Hg] Latricia Bailey Attn: Accounting,[address] [place], [address], [facility] 01/11/2025 13:00:06 Date Recorded Body height Body mass index (BMI) Body weight Provider Name and Address Organization Details Last Updated DateTime 01/11/2025 162.56 cm 21.9 kg/m2 46615.33 g Mya Busch MA [facility] 01/11/2025 12:04:40 Date Recorded Body weight Oxygen saturation Oxygen saturation in Arterial blood by Pulse oximetry Heart rate Provider Name and Address Organization Details Last Updated DateTime 01/17/2024 59702.97 g 97 % 97 % 62 /min Vida Saleh [facility] 01/17/2024 11:27:34 Date Recorded Systolic And Diastolic Provider Name and Address Organization Details Last Updated DateTime 03/27/2024 134/78 mm[Hg] Latricia Bailey Attn: Accounting,[address] [place], [address], [facility] 03/27/2024 11:10:41 Date Recorded Oxygen saturation Oxygen saturation in Arterial blood by Pulse oximetry Heart rate Body height Provider Name and Address Organization Details Last Updated DateTime 03/27/2024 93 % 93 % 60 /min 162.56 cm Aliya Mejia MA [facility] 03/27/2024 10:43:38 Date Recorded Systolic And Diastolic Provider Name and Address Organization Details Last Updated DateTime 05/05/2024 132/82 mm[Hg] Latricia Bailey Attn: Accounting,[address] [place], [address], [facility] 05/05/2024 11:08:05 Date Recorded Body height Body mass index (BMI) Body weight Oxygen saturation Oxygen saturation in Arterial blood by Pulse oximetry Heart rate Provider Name and Address Organization Details Last Updated DateTime 4 162.56 cm 21.2 kg/m2 57337.9 6 g 98 % 98 % 70 /min Aliya Mejia MA [facility] 10:42:58 Date Recorded Systolic And Diastolic Provider Name and Address Organization Details Last Updated DateTime 09/07/2024 122/82 mm[Hg] Latricia Bailey Attn: Accounting,[address] [place], [address], [facility] 09/07/2024 13:08:39 Date Recorded Body height Body mass index (BMI) Body weight Oxygen saturation Oxygen saturation in Arterial blood by Pulse oximetry Heart rate Provider Name and Address Organization Details Last Updated DateTime 162.56 cm 21.4 kg/m2 77511.9 g 97 % 97 % 74 /min Sheri Jones MA [facility] 4 12:04:33 Social History Question Answer Notes LastModified by Organizat ion Details LastModified Time Tobacco Smoking Status Former Smoker Sheri LOTUS Jones [facility], [place] - [place] 09/07/2024 12:08:20 What Is Your Level Of Caffeine Consumption? Occasional Information not available 09/07/2024 What Was The Date Of Your Most Recent Tobacco Screening? 01/11/2025 Information not available 01/11/2025 Has Tobacco Cessation Counseling Been Provided? No Information not available 01/11/2025 Sex: Unknown Functional Status Question Answer Note LastModified by Organizat ion Details LastModified Time Do you use any illicit or recreational drugs? No Information not available 01/11/2025 Do you or have you ever used any other forms of tobacco or nicotine? No Information not available 01/11/2025 What is your level of alcohol consumption? Occasional Information not available 09/07/2024 Mental Status None recorded. Family History Nothing Reported. Medical History Condition Response Coronary Artery Disease N Other N Atrial Fibrillation N High Blood Pressure Y Thyroid Problems Y Kidney or Bladder Problems N GI Problems N Depression Y COPD N Blood Clots N Have you had a mammogram in the last yea r? N Eating Disorder N Skin Problems N Anemia N Heart Attack (OK) N Anxiety Disorder Y Diabetes N Muscle, Joint, or Bone Problems N Arthritis N Seizures/Epilepsy N Have you had a colonoscopy in the last 1 0 years? N Acid Reflux (GERD) Y Cancer N Stroke N Asthma N Allergies N Have you had a PSA blood test in the las t year? N ADHD N Substance Abuse N High Cholesterol Y Hepatitis N Liver Disease N Schizophrenia N Headaches N Heart Failure N Osteoporosis N Gynecological HistoryNo gynecological history recorded. Obstetrics History GPAL:G 0 P 0 0 0 0 Past Encounters Encounter ID Performer Location Encounter Start Date Encounter Closed Date Diagnosis/Indication Diagnosis SNOMED-CT Code Diagnosis ICD10 Code Diagnosis Note [id number] Divya Giraldo, DO [facility] [place] [facility] [place] [address] [place] [address] 01/17/2024 10:22:40 01/20/2024 08:19:18 Essential hypertension 19858503 I10 Amlodipine /Norvasc 10 mg dailyStabl e Peripheral vascular disease 388460024 I73.9 No new issues Hypothyroidism 87298775 E03.9 Levothyrox ine 50 mcg Idiopathic peripheral neuropathy 79469995 G60.9 Gabapentin 300 mgStable Gastroesop hageal reflux disease without esophagitis 038591111 K21.9 Pepcid 20 mgStable Congestive heart failure 90534666 I50.9 Stable Osteoarthritis 553652139 M19.90 Stable Hyperlipidemia 20892328 E78.5 Rosuvastat in/Crestor 10 mg daily Ex-smoker 0478667 Z87.89 1 She quit October 28, 2015 Intermitte nt claudication 31768461 I73.9 Stable Chronic insomnia 8947647 04 F51.04 Stable Spinal ross nosis of lumbar region 08947921 M48.061 Depressive disorder 3548 9007 F32.A Amitriptyl ine 10 mgStable Generalize d anxiety disorder 65192665 F41.1 Stable Cobalamin deficiency 190 924108 E53.8 1000 mcg B12 IMStable Abdominal pain 10796620 R10.9 acute abdominal painruq and rlqno g or rneeds a stat cbcchem 7lftamylas ect abdomen and [id number] hrs i have talked to my staff looking into ct results if not done pt will need the ER [id number] Divya Giraldo, DO [facility] - [facility] [place] [address] [place] [address] 03/27/2024 10:09:29 03/27/2024 12:03:31 Post-discharge follow-up [id number] Z09 Patient is post discharge she was admitted from 03/04 to 03/10/2004D ischarge diagnoses include severe peripheral neuropathy Chronic back painNeurof oraminal stenosis at L4-5Old T9 compressio n fracture CT of the C-spine negative for acute processes with mild cervical spondylosi s CT L-spine notable for previous laminectom y and fusion with moderate to severe foraminal stenosis with stable fluid collection at laminectom y site L4 CT T-spine report chronic compressio n deformity of T9 with moderate to severe foraminal stenosis neurosurge ry was consulted for evaluation PT OT consulted MRI of the brain with no acute findings MRI of the cervical and lumbar spine were reviewed by neurologis t and neurosurge on and no recommenda tions for surgical interventi on were made medical management was recommende dPercocet was increasedL yrica was orderedPat ient had improvemen t of her symptomsSh e was sent to rehab having a lot of swelling in the fingers and toesweighe d 127 1 week agonow 144 yesterdayb reathing ok peripheral edemaadd dyazide 25 mg daily check labstop lyrica update 3-4 day s Chronic insomnia 8610190 04 F51.04 StableChro boni condition Congestive heart failure [id number] I50.9 StableChro boni condition Depressive disorder 3548 9007 F32.A Amitriptyl ine 10 mgStableCh ronic condition Ex-smoker 7929131 Z87.89 1 She quit October 28, 2015 Generalize d anxiety disorder 78253817 F41.1 StableChro boni condition Spinal ross nosis of lumbar region 47398799 M48.061 Chronic conditionC auses for chronic pain Hypothyroidism 78016986 E03.9 Levothyrox ine 50 mcgtake daily [id number] Divya Giraldo, DO [facility] [place] [address] [place] [address] 05/05/2024 10:30:19 05/05/2024 11:21:08 Chronic insomnia 664598638 F51.04 StableChro boni condition Cobalamin deficiency 190 930147 E53.8 1000 mcg B12 IM todayStabl e Congestive heart failure 35853600 I50.9 StableChro boni conditionw eight noted Depressive disorder 3548 9007 F32.A Amitriptyl ine 10 mgnot at goalChroni c conditiona dd wellbutrin xl 150 mg Gastroesop hageal reflux disease without esophagitis 371441809 K21.9 Pepcid 20 mgStable Generalize d anxiety disorder 99904053 F41.1 not at goalincrea se buspar to 10 mg tidChronic condition Hyperlipidemia 65975592 E78.5 Rosuvastat in/Crestor 10 mg dailychron ic conditiona t goal Hypothyroidism 74017020 E03.9 Levothyrox ine 50 mcgtake dailychron ic condition Idiopathic peripheral neuropathy 65168746 G60.9 chronic conditionc ould not tolerate lyricaon gabapentin 300 mg tid Peripheral vascular disease 791745254 I73.9 No new issueschro boni condition Spinal ross nosis of lumbar region 34083999 M48.061 Chronic conditionh as seen neurology and neurosurge ry [id number] Divya Giraldo, DO [facility] [place] [address] [facility] [address] [facility] [place] [address] 09/07/2024 11:19:02 09/07/2024 13:28:18 Congestive heart failure 15867282 I50.9 StableChro boni conditionw eight notedsees cardiology Chronic insomnia 8238717 04 F51.04 StableChro boni condition Depressive disorder 3548 9007 F32.A Amitriptyl ine 10 mgnot at goalChroni c conditiona dd wellbutrin xl 150 mg Gastroesop hageal reflux disease without esophagitis 837069379 K21.9 Pepcid 20 mgStable Generalize d anxiety disorder 22589818 F41.1 not at goalincrea se buspar to 10 mg tidChronic condition Hyperlipidemia 02712224 E78.5 Rosuvastat in/Crestor 10 mg dailychron ic conditiona t goal Osteoarthritis 499927748 M19.90 Stable Post-disch arge follow-up 142295972 Z09 Patient is post discharge she was admitted from 03/04 to 03/10/2004D ischarge diagnoses include severe peripheral neuropathy Chronic back painNeurof oraminal stenosis at L4-5Old T9 compressio n fracture CT of the C-spine negative for acute processes with mild cervical spondylosi s CT L-spine notable for previous laminectom y and fusion with moderate to severe foraminal stenosis with stable fluid collection at laminectom y site L4 CT T-spine report chronic compressio n deformity of T9 with moderate to severe foraminal stenosis neurosurge ry was consulted for evaluation PT OT consulted MRI of the brain with no acute findings MRI of the cervical and lumbar spine were reviewed by neurologis t and neurosurge on and no recommenda tions for surgical interventi on were made medical management was recommende dPercocet was increasedL yrica was orderedPat ient had improvemen t of her symptomsSh e was sent to rehab peripheral edemaadded dyazide 25 mg daily check lab Pain of ri ght knee joint 8714450753 58835 M25.561 s/p fallx ray Nausea 986043259 R11.0 [id number] Divya Giraldo, DO [facility] [place] [address] [facility] [address] [place] [address] 01/11/2025 11:11:49 01/12/2025 11:27:30 Chronic insomnia 458017883 F51.04 add lunesta 2 mg at hsChronic condition Congestive heart failure 38541736 I50.9 StableChro boni conditionw eight notedsees cardiology Depressive disorder 3548 9007 F32.A Amitriptyl ine 10 mgnot at goalChroni c conditionw ellbutrin xl 150 mg Generalize d anxiety disorder 24074444 F41.1 not at goalincrea se buspar to 10 mg tidChronic condition Gastroesop hageal reflux disease without esophagitis 173506869 K21.9 Pepcid 20 mgStable Hyperlipidemia 10937334 E78.5 Rosuvastat in/Crestor 10 mg dailychron ic conditiona t goal Hypothyroidism 36228543 E03.9 Levothyrox ine 50 mcgtake dailychron ic condition Intermitte nt claudication 69672861 I73.9 Stable Pain of right wrist 3169 975976 58941 M25.531 awaiting mri resultstri ppedfell into walllast month Health Concerns Section Related Observation LastModified by Organization Detai ls LastModified Time None Recorded Concern Status LastModified by Organization Details LastModified Time None Recorded Advance Directives Directive None Recorded Payers Insurance Date Sequence Insurance Name Policy Number Policy Cota Covered Member ID Cota Member ID Guarantor Name 05/03/2025 1 [facility] (MEDICARE REPLACEMENT/A DVANTAGE - PPO) [id number] Brianna Fofana [id number] Brianna Fofana OBGyn Episode No OBEpisode recorded.
--- OUTSIDE RECORDS SUMMARY | 2025-05-25 10:04 | XMS_ITS | Encounter Summary ---
Author Organization [employer]/[facility] Facility Care Team Providers Care Industrial Seamstress Name Role Phone Rosi Masters MD Primary Care Provider [phone] Radha Whitney MD Primary Care Provider [phone] Dhruv Harley MD Primary Care Provider [phone] Dhruv Giraldo DO Primary Care Provider + Radha Whitney MD Unavailable [phone] Dhruv Harley MD Unavailable [phone] Graciela Murphy RN Unavailable Encounter Details Date Type Department Care Team (Latest Contact Info) Description 06/06/2016 Orders Only [facility] CLINCON[facility] ProviderYoselin MD [address] [place] [address] Social History Tobacco Use Types Packs/Day Years Used Date Smoking Tobacco: Never Assessed Comments Unknown Sex and Gender Information Value Date Recorded Sex Assigned at Not on file Legal Sex 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 us Historical Provider Final Res ult documented in this encounter Visit Diagnoses Not on filedocumented in this encounter Additional Health Concerns Infection Onset Date Last Indicated Resolved Time COVID: Suspected 06/17/2023 06/17/2023 06/17/2023 11:53 AM CDT documented as of this encounter Care Teams Industrial Seamstress Relationship Specialty Start Date End Date Rosi Masters MD PCP - General 07/07/19 08/07/20 Radha Whitney MD PCP - General 08/08/20 12/05/20 Dhruv Harley MD PCP - General Family Medicine 12/06/20 01/01/21 Dhruv Giraldo DO PCP - General Family Medicine 01/02/21 Radha Whitney MD 12/06/20 01/01/21 Dhruv Harley MD Family Medicine 01/02/21 Graciela Murphy, RN [address] [place] [address] [place] [address] Dynamite Reclaimer 03/22/24 04/02/24 documented as of this encounter
--- OUTSIDE RECORDS SUMMARY | 2025-05-25 10:04 | XMS_ITS | Encounter Summary ---
Author Organization [facility] Facility Care Team Providers Care Medical Genetics Director Name Role Phone Rosi Masters MD Primary Care Provider [phone] Radha Whitney MD Primary Care Provider [phone] Dhruv Harley MD Primary Care Provider [phone] Dhruv Giraldo DO Primary Care Provider + Radha Whitney MD Unavailable [phone] Dhruv Harley MD Unavailable [phone] Graciela Murphy RN Unavailable [phone] Encounter Details Date Type Department Care Team (Latest Contact Info) Description 08/05/2015 Orders Only [facility] CLINCONV Provider, MD Yoselin [address] [place] [address] Social History Tobacco Use Types Packs/Day Years Used Date Smoking Tobacco: Never Assessed Comments Unknown Sex and Gender Information Value Date Recorded Sex Assigned at Not on file 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 Gender Identity Not on file Sexual Orientation [...] documented as of this encounter Care Teams Medical Genetics Director Relationship Specialty Start Date End Date Rosi Masters MD PCP - General 07/07/19 08/07/20 Radha Whitney MD PCP - General 08/08/20 12/05/20 Dhruv Harley MD PCP - General Family Medicine 12/06/20 01/01/21 Dhruv Giraldo DO PCP - General Family Medicine 01/02/21 Radha Whitney MD 12/06/20 01/01/21 Dhruv Harley MD Family Medicine 01/02/21 Graciela Murphy, RN [address] [place] [address] [place] [address] Catheter Builder 03/22/24 04/02/24 documented as of this encounter
--- OUTSIDE RECORDS SUMMARY | 2025-05-25 10:04 | XMS_ITS | Clinical Summary ---
[facility] Address [address] [place] [id number] Care Team Providers Care Senior Publications Specialist Name Role Phone EnzoDhruv Primary Care Provider + Dhruv Harley MD Unavailable [phone] Allergies Active Allergy Reactions Criticality Noted [...] 1:55 PM CDT): I endorse admission to halfway care. The patient is at risk of [...] Montior. Assessment & Plan (12/10/2022 11:07 AM AUTO WASHER): Will refer to a new public address system mechanic Fall 12/10/2022 Assessment & Plan (12/10/2022 11:15 AM AUTO WASHER): Fell at [facility] on 12-07-21 Having rib and mid low [...] treatment. Assessment & Plan (12/10/2022 11:04 AM AUTO WASHER): Patient is well controlled. Continue current treatment. Assessment & Plan (11/06/2022 8:45 AM AUTO WASHER): Patient is well controlled. Continue current treatment. SOFI (generalized anxiety disorder) 11/06/2022 Assessment & Plan (03/19/2024 10:55 AM CDT): Increased anxiety. Start Buspar 5mg TID. Continue Elavil. Monitor. Assessment & Plan (03/11/2023 12:12 PM CDT): She has discontinued the benzo Assessment & Plan (11/06/2022 8:46 AM AUTO WASHER): Will return to xanax tid Uncomplicated opioid dependence 06/21/2022 Assessment & Plan (06/17/2023 12:46 PM CDT): Chronic issue Continue to wean off opioid Assessment & Plan (05/30/2023 1:36 PM CDT): Will continue to wean narcotic Assessment & Plan (03/11/2023 12:05 PM CDT): Will refer to pain management I will be unable to write for [facility] narcotic meds Assessment & Plan (12/10/2022 11:04 AM AUTO WASHER): No new orders Assessment & Plan (11/06/2022 8:46 AM AUTO WASHER): Refill medication Assessment & Plan (09/03/2022 11:47 AM AUTO WASHER): Continue current treatment Assessment & Plan (06/21/2022 [...] 01/10/2022 Assessment & Plan (09/03/2022 11:46 AM AUTO WASHER): Sees vascular surgeon Assessment & Plan (01/10/2022 10:32 AM CDT): She has intermittent claudication symptoms. I am going to check an arterial brachial index of the left lower extremity. She is scheduled to see vascular surgery on January 22. I recommended she start a baby aspirin daily. ABSENTEE-SHAWNEE (hard of hearing) 05/18/2021 Assessment & Plan (01/29/2022 12:13 PM CDT): Refer to venue attendant Assessment & Plan (01/10/2022 10:33 AM CDT): [...] treatment. Assessment & Plan (12/10/2022 11:05 AM AUTO WASHER): Patient is well controlled. Continue current treatment. Assessment & Plan (11/06/2022 8:45 AM AUTO WASHER): Patient is well controlled. Continue current treatment. Assessment & Plan (09/03/2022 11:47 AM AUTO WASHER): Patient is well controlled. Continue current treatment. [...] treatment. Assessment & Plan (12/10/2022 11:11 AM AUTO WASHER): Sees vascular surgery on a regular basis Assessment & Plan (10/03/2022 1:11 PM AUTO WASHER): Stable non progressing claudication to the left [...] synthroid Assessment & Plan (09/03/2022 11:46 AM AUTO WASHER): tsh and free t4 Assessment & Plan (01/10/2022 10:36 AM CDT): tsh and free t4 Assessment & Plan (01/03/2021 8:26 AM AUTO WASHER): Check lab Peripheral neuropathy 01/03/2021 Assessment & [...] treatment. Assessment & Plan (01/03/2021 8:24 AM AUTO WASHER): Discussed with patient approximately 20minutes End of life issues/Advanced Directives/Healthcare Surrogate. Discussed DNR. Encouraged to discuss further with family and consult sports attorney or complete [place] approved form, which [...] 03/12/2024 Assessment & Plan (12/10/2022 11:20 AM AUTO WASHER): Pain in second toe Deformed Refer to arc cutter Chronic mid back pain 05/22/20222023 Assessment & Plan (05/30/2023 1:37 PM CDT): Chronic. Worsening. Will check a MRI T-spine Assessment & Plan (03/11/2023 12:15 PM CDT): Chronic condition Worsening Order a mri t spine Has spinal stenosis of the t spine Assessment & Plan (09/03/2022 11:51 AM AUTO WASHER): Terms of the lower extremities a chronic [...] 03/12/2024 Assessment & Plan (12/10/2022 11:11 AM AUTO WASHER): Saw rheumatology Told no need to recheck karan Assessment & Plan (01/29/2022 12:13 PM CDT): Refer to county extension agent Assessment & Plan (01/10/2022 10:33 AM CDT): Recheck a karan Assessment & Plan (05/09/2021 10:36 AM CDT): See rheumatology Proteinuria 04/13/2021 03/12/2024 Assessment & Plan (01/10/2022 10:33 AM CDT): Has seen hematology Back strain 02/20/2021 01/10/2022 Atypical chest pain 01/26/2021 01/11/20 22 Hx pulmonary embolism 01/03/20212020 Crohn's disease 01/03/2021 12/10/2022 Assessment & Plan (12/10/2022 11:05 AM AUTO WASHER): Will refer her to a new G.I specialist Assessment & Plan (11/06/2022 8:47 AM AUTO WASHER): Sees Dr. Whitney Assessment & Plan (09/03/2022 11:46 AM AUTO WASHER): Refer to gastroenterology Assessment & Plan (04/05/2022 12:52 PM CDT): Having llq discomfort Possible colitis Will add cipro 500 mg bid 1 week Update 4 day s Call or ER if worsening Assessment & Plan (01/10/2022 10:36 AM CDT): Sees Dr. Whitney Anxiety 01/03/2021 01/10/2022 Assessment & Plan (01/03/2021 8:36 AM AUTO WASHER): Add low dose xanax Acute bilateral low [...] 01/10/2022 Assessment & Plan (01/03/2021 8:24 AM AUTO WASHER): Refer to cardiology Start basa daily Check [...] Yrs) PURPLE 02/02/2021,01/12/2021 Pneumococcal Conjugate Pcv20 11/06/2022 Surgical History Surgery Date Site/Laterality Comments TONSILLECTOMY 10/28/1989 - 10/27/1990 CHOLECYSTECTOMY 10/28/1979 - 10/27/1980 HYSTERECTOMY 10/28/1989 - 10/27/1990 LUMBAR FUSION L4-[address] Johnson 2015 APPENDECTOMY COLONOSCOPY OOPHORECTOMY Medical History Medical History Date Comments Thyroid disease Cirrhosis (HCC) Hypertension Depression Hypercholesteremia Arthritis Anxiety Rib fractures 06/06/2016 Family History Medical History Relation Name Comments Diabetes Brother 1 Diabetes Father Breast cancer Mother Cancer Mother Diabetes Mother Diabetes Sister 1 Rola Diabetes Sister 2 Rita Diabetes Son 1 Relation Name Status Comments Brother 1 Alive Brother 2 Alive Brother 3 Alive Brother 4 Alive Father Mother Sister 1 Rola Alive Sister 2 Rita Alive Sister 3 Alive Sister 4 Alive Son 1 Alive Son 2 Alive Son 3 Alive Social History Tobacco Use Types Packs/Day Years Used Date Smoking Tobacco: Former Cigarettes Q uit: 2016 Smokeless Tobacco: Never Tobacco Cessation:Counseling Given: Not Answered [facility] Utilities Answer Date Recorded In the past 12 months has th e electric, gas, oil, or water company threatened to shut off services in your [...] often do you attend chur ch or temple services? Never 03/24/2024 Do you belong to any clubs o r organizations such as gnosticism groups, unions, fraternal or athletic groups, or [...] place to sleep or slept in a senior living (including now)? No 03/04/2024 Housing Stability Vital Sign Answer Jarret e Recorded In the last 12 months, was t here a time when you were not able to pay the mortgage or rent on time? No 03/24/2024 In the past 12 months, how m any times have you moved where you were living? 0 03/24/2024 At any time in the past 12 m [facility], were you homeless or living in a senior living (including now)? No 03/24/2024 Personal Safety Answer Date Recorded Have you ever been in or are you currently in a harmful physical or emotional relationship or is someone making you feel afraid or unsafe? Denies 03/04/2024 Comments Unknown Sex and Gender Information Value Date Recorded Sex Assigned at Not on file Legal Sex Female 9:15 AM AUTO WASHER Gender Identity Not on file Sexual Orientation Not on file Obstetrics History Last Filed Vital Signs Vital Sign Reading [...] 03/04/2024 5:12 AM CDT Plan of Treatment Health Maintenance Due Date Last Done Comments Osteoporosis Screening-Bone Density Scan 1955 DTaP/Tdap/Td Vaccine (1 - Tdap) 1968 Hepatitis B Screening 1975 Zoster Vaccine (1 of 2) 1976 Covid-19 Vaccine (3 - Pfizer risk series) 03/02/2021 02/02/2021, 01/12/2021 Breast Cancer Screening-Mammogram 03/15/2022 021, 07/08/2019 Well Visit 65+ 03/11/2024 03/11/2023, 12/26, 01/03/2021 Depression Screening 06/17/2024 06/17/2023, 03/11/2023, 09/03/2022, Additional history exists Fall Risk Assessment 03/10/2025 03/10/2024, 03/11/2023, 01/10/2022, Additional history exists Influenza Vaccine (#1) 2025 Colon Cancer Screening-Colonoscopy 04/24/2031 04/24/2021 Colon Cancer Screening-CT Colonography Discontinued 04/24/2021 Colon Cancer Screening-DNA Stool Discontinued 04/24/20 Colon Cancer Screening-FIT Discontinued 04/24/2021, Colon Cancer Screening-Sigmoidoscopy Discontinued 04/24/2021 Hepatitis C Screening Completed 04/19/2022, 020 Pneumococcal vaccine 65+ Completed 11/06/2022 Goals Goal Patient Goal Type Associated Problems Recent Progress Patient-Stated? Author JANENE General Goal - Patient establishes care with [facility] ACO Care Management Graciela Abraham, RN Note: Problem: Lack of [facility] communication Interventions: - Provide coordination between [facility] company and patient. - Ensure [facility] has appropriate referral and orders to establish care with patient. - Follow up with patient to ensure initial visit was completed by [facility] and that a [facility] plan has been started. JANENE General [...] medications as ordered. Coordinate with appropriate personnel ([facility] worker assisted living, physician, pharmacist, etc.) to help increase compliance [...] Care Management program ACO Care Management Graciela Abraham, RN Note: Problem: At Risk for Falls [...] CDT) Hep C Ab Nonreactive Nonreactive [facility] Comment: Interpretive Data Nonreactive: Antibodies to HCV [...] LAB MICROBIOLOGY - GENERAL ORDERABLES Final Result [facility] [address] [place] [address] * (ABNORMAL) Colonoscopy (04/24/2021) Anatomical Region Laterality Modality Other 04/24/2021 us Radha Whitney MD ENDOSCOPY PROCEDURES Yvrose l Result * Screening Mammogram Bilateral W Vinnie (03/15/2021 12:42 PM CDT) Anatomical Region Laterality Modality Breast Bilateral Mammography 03/15/2021 1:00 PM CDT Narrative 03/15/2021 1:18 PM CDT Patient Name: STEPHEN PETERSON Dr: Dhruv Giraldo DO, D.O.B: 1955 Exam Date: 03/15/21 1242 Age: 65 Sex: Female MR#: [id number] Loc: RADIOLOGY REPORT Order #[id number] [facility] Merrick Bilat Screening 3D Signed - MG [...] made to exams dated: [facility] - [facility]. BREAST TISSUE: The tissue of both [...] age 40, based on guidelines of the [employer] [employer] (ACR Practice Parameter for the Performance of Screening and Diagnostic Mammography) and [place] [employer]. For women with an elevated risk of breast cancer, please refer to the ACR Practice Parameter for specific screening recommendations. The patient will be entered into a reminder system with a target due date of 1 year for her next screening exam. Electronically signed by: Josh Bender M.D., md/:03/15/2021 13:18:50 Tape Rules Printing Machine Operator: Natalee RODRIGUEZ (Vega)(Nory), [facility] letter sent: Normal Exam Reading location: BI-RADS: 2 Benign REPORT ELECTRONICALLY SIGNED IN OTHER VENDOR SYSTEM Resulting Agency Comment O Procedure Note Josh Bender MD - 03/15/2021 Patient Name: NICHOLASSTEPHENCARLEY Mcdaniels Dr: Dhruv Giraldo DO, D.O.B: 1955 Exam Date: 03/15/21 1242 Age: 65 Sex: Female MR#: [id number] Loc: RADIOLOGY REPORT Order #[id number] [facility] Merrick Bilat Screening 3D Signed - MG [...] is made to exams dated: 07/27/2019 ultrasound -[facility] and 07/08/2019 mammogram - [facility]. BREAST TISSUE: The tissue of both [...] age 40, based on guidelines of the [place] [employer] (ACR Practice Parameter for the Performance of Screening and Diagnostic Mammography) and [place]. For women with an elevated risk of breast cancer, pleaserefer to the ACR Practice Parameter for specific screening recommendations. The patient will be entered into a reminder system with a target due dateof 1 year for her next screening exam. Electronically signed by: Josh Bender M.D., md/:03/15/2021 13:18:50 Tape Rules Printing Machine Operator: Natalee Dumont)(Nory), [facility] letter sent: Normal Exam Reading location: BI-RADS: 2 Benign REPORT ELECTRONICALLY SIGNED IN OTHER VENDOR SYSTEM Dhruv Giraldo DO IMG MAMMO PROCEDURES Fin al Result from Last 3 Months or Most Recently Relevant to Health Maintenance Insurance [facility] MEDICARE [facility] MEDICARE ADVANTAGE [facility] MEDICARE Advance Directives For more information, please contact: [phone] Documents on File Type Date Recorded Patient Sales Special Agent Expl anation ADVANCE DIRECTIVE 01/03/2021 * Full Code (Latest Code Status on File) Date Activated Date Inactivated Comments 03/04/2024 7:53 AM 03/10/2024 8:14 PM * Full Code Date Activated Date Inactivated Comments 02/24/2024 4:34 PM 02/28/2024 7:11 PM Care Teams Senior Publications Specialist Relationship Specialty Start Date End Date Dhruv Giraldo DO PCP - General Family Medicine 01/02/21 Dhruv Harley MD Family Medicine 01/02/21
--- OUTSIDE RECORDS SUMMARY | 2025-05-25 10:04 | XMS_ITS | Clinical Summary ---
Author Organization [facility] Address [address] [place] [id number] Care Team Providers Care Section Beamer Name Role Phone Divya Saha Primary Care Provider [phone] Allergies Active Allergy Reactions Criticality Noted Date Comments Morphine Unknown 03/02/2024 Penicillins Rash Low 03/02/2024 Medications amitriptyline (ELAVIL) 50 MG tablet Take 1 tablet (50 mg total) by mouth daily. 09/07/2024 Active amLODIPine (NORVASC) 10 MG tablet Take 1 tablet (10 mg total) by mouth daily. 03/15/2025 Active buPROPion XL (WELLBUTRIN XL) 150 MG 24 hr tablet Take 1 tablet (150 mg total) by mouth daily. 12/24/2024 Active dicyclomine (BENTYL) 10 MG capsule Take 1 capsule (10 mg total) by mouth 3 (three) times daily. 11/13/2024 Active eszopiclone (LUNESTA) 2 MG tablet Take 1 tablet (2 mg total) by mouth nightly at bedtime. 02/12/2025 Active folic acid (FOLVITE) 1 MG tablet Take 1 tablet (1 mg total) by mouth daily. 03/15/2025 Active gabapentin (NEURONTIN) 300 MG capsule Take 1 capsule (300 mg total) by mouth 3 (three) times daily. Active levothyroxine (SYNTHROID) 50 MCG tablet Take 1 tablet (50 mcg total) by mouth daily. 12/16/2024 Active oxyCODONE-aceta minophen (PERCOCET) 7.5-325 MG tablet Take 1 tablet by mouth every 6 (six) hours as needed for Pain. Active Encounters Date Type Department Care Team Description 04/02/2025 1:28 PM CDT - 04/02/2025 11:59 PM CDT Hospital Encounter [facility] Diagnostic Imaging [address] [place] [id number] Divya Saha DO Discharge Disposition: Home or Self Care (Routine Discharge) 04/02/2025 Travel 03/29/2025 7:23 AM CDT Hospital Encounter [facility] [address] [place] [address] Alireza Latham MD Discharge Disposition: Home or Self Care (Routine Discharge) 03/29/2025 Travel from Last 3 Months Social History Tobacco Use Types Packs/Day Years Used Date Smoking Tobacco: Former Cigarettes Smokeless Tobacco: Never Tobacco Cessation:Counseling Given: Not Answered Alcohol Use Standard Drinks/Week Comments Never 0 (1 standard drink = 0.6 oz pur e alcohol) Comments No Sex and Gender Information Value Date Recorded Sex Assigned at Female 12/24/2024 3:11 PM [employer] Legal Sex Female 10:38 PM CDT Gender Identity Not on file Sexual Orientation Not on file Last Filed Vital Signs Vital Sign Reading Time Taken Comments Blood Pressure 144/84 03/29/2025 8:10 AM CDT Pulse 66 03/29/2025 8:10 AM CDT Temperature 36.8 C (98.3 F) 03/29/2025 8:10 AM CDT Respiratory Rate 16 03/29/2025 8:10 AM CDT Oxygen Saturation 97% 03/29/2025 8:10 AM CDT Inhaled Oxygen Concentration - - Weight 58.2 kg (128 lb 4.9 oz) 03/29/2025 8:10 A M CDT Height 157.5 cm (5' 2) 03/29/2025 8:10 AM CDT Body Mass Index 23.47 03/29/2025 8:10 AM CDT Plan of Treatment Health Maintenance Due Date Last Done Comments Colorectal Cancer Screening Colonoscopy (10 Years) 1957 DTaP, Tdap and Td Vaccines ( 1 - Tdap) 1976 Zoster Vaccines (1 of 2) 2007 Annual Medicare Wellness Visit 2022 Dexa Scan (General) 2022 Mammogram Screening 03/15/2023 03/15/2021, 07/08/2019 COVID-19 Vaccine (3 2023-2 5 season) 2024 02/02/2021, 01/12/2021 RSV Immunization or 60+ Years (1 - 1-dose 75+ series) 2032 Hepatitis C Completed 05/26/2016 Pneumococcal Vaccine: 50+ Years Completed 11/06/2022 Meningococcal B Vaccine Aged Out No l onger eligible based on patient's age to complete this topic Meningococcal Vaccine Aged Out No flaco robbie eligible based on patient's age to complete this topic RSV Immunizations Under 20 Months Aged Out No longer eligible b ased on patient's age to complete this topic Procedures Procedure Name Priority Date/Time Associated Diagnosis Comments XR RIBS RT UNI Routine 04/02/2025 1:58 PM CDT Pleurodynia PROTHROMBIN TIME, VENOUS Routine 03/29/2025 7:36 AM CDT Bone lesion PLATELET COUNT, AUTO Routine 03/29/2025 7:36 AM CDT Bone lesion PARTIAL THROMBOPLASTIN TIME,PTT Routine 03/29/2025 7:36 AM CDT Bone lesion HEPATITIS PANEL,ACUTE Routine 05/26/2016 8:28 AM CDT from Last 3 Months or Most Recently Relevant to Health Maintenance Results * XR RIBS RT UNI (04/02/2025 1:58 PM CDT) Anatomical Region Laterality Modality Chest Radiographic Karla ging 04/09/2025 8:09 AM CDT Impressions 04/09/2025 8:12 AM CDT IMPRESSION: 1) Multiple acute right lateral rib fractures are noted involving probably the right fourth through the right ninth ribs. No evidence of pneumothorax. 2. Cardiomegaly without evidence of CHF. Ordered By: DIVYA SAHA Interpreted By: Luis Purvis MD, 04/09/2025 8:09 AM Narrative 04/09/2025 8:12 AM CDT [facility] [place] [id number] Examination: XR RIBS RT UNI Exam time: [...] of fracture is demonstrated. Mild thoracolumbar scoliosis. Procedure Note Luis Purvis MD - 04/09/2025 [place] [id number] Examination: XR RIBS RT UNI Exam time: 04/02/2025 1:36 PM Clinical history: Trauma, right side pain Comparison: 05/28/2016 Technique: AP and oblique views of the right ribs Findings: There is evidence of cardiomegaly. Pulmonary vasculature withinnormal limits. No focal pulmonary parenchymal opacity. No pleuraleffusion. No evidence of pneumothorax. There are multiple acute appearing minimally displaced fractures involvingright lateral ribs from the right fourth rib to the right ninth rib. Noother evidence of fracture is demonstrated. Mild thoracolumbarscoliosis. IMPRESSION: 1) Multiple acute right lateral rib fractures are noted involving probablythe right fourth through the right ninth ribs. No evidence ofpneumothorax. 2. Cardiomegaly without evidence of CHF. Ordered By: DIVYA SAHA Interpreted By: Luis Purvis MD, 04/09/2025 8:09 AM us Divya Saha DO GENERAL IMAGING Final Result * (ABNORMAL) PLATELET COUNT, AUTO (03/29/2025 7:36 AM CDT) PLT 317 130 - 400 x10'3/uL 03/29/2025 7:58 AM CDT [facility] MPV 8.4(L) 9.3 - 12.2 FL 03/29/2025 7:58 AM CDT [facility] 03/29/2025 7:36 AM CDT us Alireza Latham MD LABORATORY Final Result [facility] [address] [place] [address], * PTT, PARTIAL THROMBOPLASTIN TIME (03/29/2025 7:36 AM CDT) PTT 29.5 25.1 - 36.5 SEC 03/29/2025 8:31 AM CDT [facility] 03/29/2025 7:36 AM CDT us Alireza Latham MD LABORATORY Final Result Performing Organization Address City/[facility] Co de Phone Number [facility] [address] [place] [address], [place] [phone] * PROTIME/INR, VENOUS (03/29/2025 7:36 AM CDT) PROTIME 10.3 10.2 - 12.9 SEC 03/29/2025 8:31 AM CDT [facility] INR 0.9 03/29/2025 8:31 AM CDT [facility] Comment: Recommended INR Therapeutic Goals: 2.0-3.0 Routine Therapy 2.5-3.5 Mechanical Prosthetic Valves (High Risk) 03/29/2025 7:36 AM CDT us Alireza Latham MD LABORATORY Final Result [facility] [address] [place] [address], [place] [phone] * HEPATITIS PANEL,ACUTE (05/26/2016 8:28 AM CDT) HAV IGM NON-REACTI VE NON-REACTI VE 05/28/2016 4:22 PM CDT [facility] Comment: TESTING PERFORMED AT [address] [address] HEPATITIS B SURFACE AG NON-REACTI VE NON-REACTI VE 05/28/2016 4:22 PM CDT [facility] Comment: TESTING PERFORMED AT [address] [address] HEP B CORE IGM NON-REACTI VE NON-REACTI VE 05/28/2016 4:22 PM CDT [facility] Comment: TESTING PERFORMED AT [address] [address] HEPATITIS C AB NON-REACTI VE NON-REACTI VE 05/28/2016 4:22 PM CDT [facility] Comment: TESTING PERFORMED AT [address] [address] 05/26/2016 8:28 AM CDT 05/26/2016 8:29 AM CDT us Generic Conversion Md [facility] Final R esult [facility] [address] [place] [address], [place] [phone] from Last 3 Months or Most Recently Relevant to Health Maintenance Insurance [facility] Care Teams Section Beamer Relationship Specialty Start Date End Date Divya Saha DO [address] [place] [phone] PCP - General FAMILY PRACTICE 09/07/24
[2025-05-25 10:06] LABS: Magnesium 1.6 mg/dL (1.6-2.3)
--- NOTE | 2025-05-25 10:21 | ED_ITS ---
HPI - General Adult General Chief complaint: Arrhythmia/Palpitations Stated complaint: bradycardia Time Seen by Provider: 05/25/25 09:28 History of Present Illness HPI narrative: Patient is a 69-year-old female who presents ER with a low heart rate. She was at pain management told her heart rate was in the 30s and that she come here. She has no chest pain. No lightheadedness. No dizziness. No syncope. She has not had this issue previously. She takes Norvasc but no other rate control medications. Related Data Allergies Allergy/AdvReac Type Severity Reaction Status Date / Time No Known Allergies Allergy Verified 05/25/25 09:26 Review of Systems 2 Review of Systems: All systems reviewed & are unremarkable except as noted in HPI and below Constitutional: Constitutional: Reports no additional constitutional complaints Cardiovascular: Cardiovascular: Reports no additional cardiovascular complaints Respiratory: Respiratory: Reports no additional respiratory complaints Gastrointestinal: Gastrointestinal: Reports no additional gastrointestinal complaints Musculoskeletal: Musculoskeletal: Reports no additional musculoskeletal complaints [facility] Past Medical History Medical History (Updated 05/25/25 @ 19:44 by Tyrone Corley MD) Neuropathy Insomnia Hypertension Exam 2 Narrative: GENERAL: Well-appearing, well-nourished, and in no acute distress. HEAD: Normocephalic, atraumatic. ENT: Mucous membranes moist. CHEST: Clear to auscultation. No respiratory distress. HEART: Regular rate and rhythm. Normal peripheral pulses. ABDOMEN: Soft, nontender, nondistended. EXTREMITIES: Normal range of motion. No edema. SKIN: Warm, dry, no rash. NEURO: Alert and oriented x3. PSYCH: Normal mood and affect. Course Course Emergency Course: Patient in [facility]. Discussed with her psychiatry resident Dr. Andrews at [facility]. No changes in medication and he will have her follow up in 1 week. Patient verbalized understanding plan and feels comfortable with discharge. Vital Signs Vital signs: Vital Signs Temperature 97.7 F 05/25/25 09:22 Pulse Rate 68 05/25/25 09:22 Respiratory Rate 15 05/25/25 09:22 Blood Pressure 127/88 05/25/25 09:22 Pulse Oximetry 95 05/25/25 09:22 Oxygen Delivery Room Air 05/25/25 09:22 Temperature 97.9 F 05/25/25 09:30 Pulse Rate 61 05/25/25 11:37 Respiratory Rate 16 05/25/25 11:37 Blood Pressure 129/68 05/25/25 11:37 Pulse Oximetry 97 05/25/25 11:37 Oxygen Delivery Room Air 05/25/25 09:22 Medical Decision Making Vital Signs Vital Signs: Vital Signs Temperature 97.7 F 05/25/25 09:22 Pulse Rate 68 05/25/25 09:22 Respiratory Rate 15 05/25/25 09:22 Blood Pressure 127/88 05/25/25 09:22 Pulse Oximetry 95 05/25/25 09:22 Oxygen Delivery Room Air 05/25/25 09:22 Temperature 97.9 F 05/25/25 09:30 Pulse Rate 61 05/25/25 11:37 Respiratory Rate 16 05/25/25 11:37 Blood Pressure 129/68 05/25/25 11:37 Pulse Oximetry 97 05/25/25 11:37 Oxygen Delivery Room Air 05/25/25 09:22 Lab Data 05/25/25 09:21 05/25/25 09:21 Labs: Lab Results 05/25/25 Range/Units 09:21 WBC 8.7 (4.5-10.0) K/mm3 RBC 3.98 L (4.2-5.4) M/mm3 Hgb 12.4 (12.0-15.0) g/dL Hct 36.9 L (37.0-47.0) % MCV 92.7 (80-100) fl MCH 31.2 (26-34) pg MCHC 33.6 (32-36) g/dl RDW 11.9 (11.5-14.5) % Plt Count 243 (150-375) k/mm3 MPV 8.2 (7.4-10.4) fl Immature Gran % (Auto) 0.3 (0-0.5) % Neut % (Auto) 57.4 (45.5-73.1) % Lymph % (Auto) 28.1 (18.3-44.2) % [place] % (Auto) 9.5 H (2.6-8.5) % Eos % (Auto) 4.0 (0-4.4) % Baso % (Auto) 0.7 (0.2-1.2) % Lymph # (Auto) 2.43 (0.9-3.2) K/mm3 [place] # (Auto) 0.8 H (0.1-0.6) K/mm3 Eos # (Auto) 0.4 H (0-0.3) K/mm3 Baso # (Auto) 0.1 (0.0-0.1) K/mm3 Abs Immat Gran (auto) 0.03 (0.00-0.031) K/mm3 Absolute Neuts (auto) 5.0 (1.3-6.7) K/mm3 Absolute Nucleated RBC 0.000 (0.0-0.012) K/mm3 Nucleated RBC % 0.0 (0.0-0.2) % PT 12.7 (11.1-14.7) Seconds INR 0.9 APTT 25.6 (22.3-36.8) Seconds Sodium 130 L (137-145) mmol/L Potassium 3.7 (3.4-5.0) mmol/L Chloride 91 L (98-107) mmol/L Carbon Dioxide 30 (22-30) mmol/L Anion Gap 9 (4-12) mmol/L BUN 5 L (7-17) mg/dL Creatinine 0.76 (0.7-1.0) mg/dL Estim Creat Clear Calc 49 ml/min Estimated GFR > 60 (59 - ) Glucose 130 H (65-110) mg/dL Calcium 9.4 (8.4-10.2) mg/dL Magnesium 1.6 (1.6-2.3) mg/dL Total Bilirubin 0.4 (0.2-1.3) mg/dL AST 31 (14-36) U/L ALT 19 (6-35) U/L Alkaline Phosphatase 95 (38-126) U/L Troponin I < 0.012 (0.000-0.034) ng/mL Total Protein 7.8 (6.3-8.2) g/dL Albumin 4.2 (3.5-5.1) g/dL Imaging Data Radiologist's impression: ITS Impressions Chest X-Ray 05/25/25 09:46 IMPRESSION: No focal infiltrate or effusion. ECG Data EKG #1: ECG completion date: 05/25/25 ECG completion time: 09:17 EKG Interpretation: normal rate (63), sinus rhythm, PVCs and normal QT Discharge Plan Discharge Clinical Impression: [place] Patient Disposition: Home Condition: Stable Instructions: Premature Ventricular Contractions (ED) Additional Instructions: Follow-up with your psychiatry resident in 1 week for further treatment and evaluation. Return the ER if you lose consciousness, your getting dizzy, or you have additional concerns. Patient Language: [place] Follow-up/Referrals: Dr. Andrews [Other] - 1 Week [place],Dhruv Bustillos MD [Primary Care Provider] - 1 Week
== END 2025-05-25 11:38 | disposition home or self-care (01) ==
PROVIDERS: Emergency Provider Emergency Medicine; PCP Family Medicine
DX: R00.8 Other abnormalities of heart beat (principal); I10 Essential (primary) hypertension; G62.9 Polyneuropathy, unspecified; I49.3 Ventricular premature depolarization; Z79.899 Other long term (current) drug therapy
CPT/HCPCS: 36415; 71046; 80053; 83735; 84484; 85025; 85610; 85730; 93005; 99284